=== PATIENT | male | born 1980 | race Caucasian/White ===

== ENCOUNTER 2024-06-15 11:43 | Observation (INO) | payer MEDICARE ==
[2024-06-15] MEDS ORDERED: DUONEB 0.5-3 MG/3 ml Neb IH ONE (12:06)
[2024-06-15] MEDS: DUONEB 0.5-3 MG/3 ml Neb IH ONE (12:15)
--- NOTE | 2024-06-15 12:22 | ERPHSYRPT ---
- History of Present Illness Time Seen by Provider: 06/15/24 12:11 Source: patient, family Exam Limitations: no limitations Patient Subjective Stated Complaint: pt c/o of low oxygen that was between 87-89 at Nica Artemas's office and upon arrival it was 92-93. pt also has a cough Triage Nursing Assessment: Pt brought to the ER by his sister, vitals wnl, denies pain, pulses normal, crackles and wheezing heard from across the room, mentally challenged, doesn't appear to be in any distress Physician History: 43 years old male with history of asthma, seizure disorder, hypertension, hyperlipidemia presented in the ER with almost 1 week history of cough congestion with worsening wheezing. Patient has been using albuterol with no significant relief. Patient was earlier at [facility] and oxygen saturation dropping to 87%. Patient reports increasing dyspnea with activity, subjective feeling of fever and chills, cough productive of clear to yellow sputum moderate in amount. Other family members had similar symptoms. Patient oxygen saturation is 91% on room air on presentation in the ER. Has diffuse wheezing and few rales. He is given DuoNeb, feeling better on reevaluation. Allergies/Adverse Reactions: No Known Drug Allergies Allergy (Unverified 06/15/24 16:44) Home Medications: Albuterol Sulfate 1 amp PO Q4-6HPRN 06/15/24 [History] Albuterol Sulfate [Albuterol Sulfate Hfa] 2 puff PO Q6HPRN PRN 06/15/24 [History] Ascorbic Acid 500 mg [Vitamin C 500 MG] 1,000 mg PO DAILY 06/15/24 [History] Fluticasone/Umeclidin/Vilanter [Trelegy Ellipta 200-62.5-25] 1 inh PO HS 06/15/24 [History] Lisinopril 10 mg [Zestril 10 MG] 10 mg PO BID 06/15/24 [History] Montelukast Sodium 10 mg [Singulair 10 MG] 10 mg PO DINNER 06/15/24 [History] Sertraline HCl 50 mg [Zoloft 50 mg Tablet] 50 mg PO DAILY 06/15/24 [History] Zonisamide 200 mg PO BID 06/15/24 [History] levETIRAcetam [Levetiracetam] 750 mg PO BID 06/15/24 [History] Hx Influenza Vaccination/Date Given: Yes Hx Pneumococcal Vaccination/Date Given: Yes Travel Risk - International Travel Have you traveled outside of the country in past 3 weeks: No - Emerging Infectious Disease Are you exhibiting symptoms associated with any current EIDs: Yes Symptoms: Cough: New Onset, Shortness of Breath - Review of Systems Constitutional: Fever, Chills, Fatigue Eyes: No Symptoms Ears, Nose, & Throat: Nose Congestion, Throat Swelling Respiratory: Cough, Dyspnea on Exertion (WARD), Wheezing Cardiac: No Symptoms Abdominal/Gastrointestinal: No Symptoms Genitourinary Symptoms: No Symptoms Musculoskeletal: Arthralgias Skin: No Symptoms Neurological: No Symptoms Endocrine: No Symptoms Hematologic/Lymphatic: No Symptoms - Past Medical History Pertinent Past Medical History: Yes Neurological History: Seizures Cardiac History: High Cholesterol, Hypertension Respiratory History: Asthma GI Medical History: Irritable Bowel Psycho-Social History: Depression - Past Surgical History Past Surgical History: Yes Musculoskeletal: Orthopedic Surgery Other Surgical History: thyroid surgery, sobeida ankle surgery to straighten feet - Social History Smoking Status: Never smoker Exposure to second hand smoke: Yes Drug Use: none - Social Determinants of Health Will the patient participate in the screening: Yes Do you worry about a steady place to live?: No Do you have any problems with any of the following?: No known problems In the past 12 months,have you had to go without utilities?: No Transportation Issues: No Has anyone in your support network made you feel unsafe?: No Have you or anyone in your house had to go without enough: No - Nursing Vital Signs Nursing Vital Signs: Initial Vital Signs Temperature 98.2 F 06/15/24 11:47 Pulse Rate 79 06/15/24 11:47 Respiratory Rate 31 H 06/15/24 11:47 Blood Pressure 135/81 06/15/24 11:47 O2 Sat by Pulse Oximetry 93 L 06/15/24 11:47 Pain Scale Pain Intensity 0 - Physical Exam General Appearance: no apparent distress, alert Eye Exam: PERRL/EOMI Ears, Nose, Throat Exam: hearing grossly normal, pharyngeal erythema Neck Exam: normal inspection, non-tender, supple, full range of motion Respiratory Exam: diminished breath sounds, accessory muscle use, wheezing Cardiovascular/Chest Exam: normal heart sounds, regular rate/rhythm Abdominal/Gastrointestinal Exam: soft, normal bowel sounds Extremity Exam: non-tender, normal range of motion Neurologic Exam: alert, oriented x 3, cooperative, 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 Skin Exam: normal color SpO2 Interpretation: normal SpO2: 93 O2 Delivery: Room Air Ordered Tests: Medication Summary Discontinued Medications Generic Name Dose Route Start Last Admin Trade Name Camdenq PRN Reason Stop Dose Admin Acetaminophen 650 mg 06/15/24 16:53 Acetaminophen 325 Mg Tablet PO 07/15/24 16:52 Q4H PRN PRN PAIN, FEVER, HEADACHE Albuterol Sulfate 2 puff 06/16/24 07:12 Albuterol Common Canister Inhaler IH 07/16/24 07:11 Q6HPRN PRN SHORTNESS OF BREATH Albuterol/Ipratropium Confirm 06/15/24 12:06 Ipratropium/Albuterol Sulfate 3 Ml Ampul.Neb Administered 06/15/24 12:07 Dose 3 ml IH .STK-MED ONE Albuterol/Ipratropium 3 ml 06/15/24 12:11 06/15/24 12:15 Ipratropium/Albuterol Sulfate 3 Ml Ampul.Neb 06/15/24 12:12 3 ml STAT ONE Administration Albuterol/Ipratropium 3 ml 06/15/24 19:00 06/16/24 13:20 Ipratropium/Albuterol Sulfate 3 Ml Ampul.Neb 07/15/24 18:59 3 ml Q6HRT DEANNA Administration Methylprednisolone Sodium 0 mg 06/15/24 12:14 06/15/24 13:34 Succinate 125 mg/ Sterile IV 06/15/24 12:15 125 mg Water 2 ml STAT ONE Administration Methylprednisolone Sodium 0 mg 06/15/24 22:00 06/16/24 09:58 Succinate 40 mg/ Sterile Water IV 07/15/24 21:59 40 mg 1 ml Q12HT DEANNA Administration Enoxaparin Sodium 40 mg 06/15/24 18:00 06/16/24 09:55 Enoxaparin Sodium 40 Mg/0.4 Ml Syringe SQ 07/15/24 17:59 40 mg DAILY DEANNA Administration Guaifenesin/Dextromethorphan 5 ml 06/15/24 16:53 06/15/24 23:13 Guaifenesin/D-Methorphan Hb 118 Ml Syrup PO 07/15/24 16:52 5 ml Q4H PRN PRN Administration COUGH Sodium Chloride 1,000 mls @ 999 mls/hr 06/15/24 14:06 06/15/24 15:58 Sodium Chloride 0.9% 1000 Ml IV 06/15/24 15:06 Infused .Q1H1M STA Infusion Sodium Chloride Confirm 06/15/24 14:11 Sodium Chloride 0.9% 1000 Ml Administered 06/15/24 14:12 Dose 1,000 mls @ ud .ROUTE .STK-MED ONE Ceftriaxone Sodium 2 gm in 100 mls @ 200 mls/hr 06/15/24 15:52 06/15/24 16:00 Rocephin 2 Gm/100 Ml Nacl IV 06/15/24 16:21 200 ml/hr STAT ONE 200 mls/hr Administration Azithromycin 500 mg in 250 mls @ 250 mls/hr 06/15/24 15:52 06/15/24 17:24 Zithromax 500 Mg/ 250 Ml Nacl Premix IV 06/15/24 16:51 Not Given STAT STA Ceftriaxone Sodium Confirm 06/15/24 15:55 Rocephin 2 Gm/100 Ml Nacl Administered 06/15/24 15:56 Dose 2 gm in 100 mls @ ud IV .STK-MED ONE Azithromycin 500 mg in 250 mls @ 250 mls/hr 06/16/24 10:00 06/16/24 10:50 Zithromax 500 Mg/ 250 Ml Nacl Premix IV 07/16/24 09:59 250 mls/hr Q24H10 DEANNA Administration Ceftriaxone Sodium 1 gm in 100 mls @ 200 mls/hr 06/16/24 10:00 06/16/24 09:55 Rocephin 1 Gm / 100 Ml Nacl IV 07/16/24 09:59 200 mls/hr Q24H10 DEANNA Administration Levetiracetam Confirm 06/15/24 22:43 Levetiracetam 500 Mg Tablet Administered 06/15/24 22:44 Dose 500 mg .ROUTE .STK-MED ONE Levetiracetam Confirm 06/15/24 22:43 Levetiracetam 250 Mg Tablet Administered 06/15/24 22:44 Dose 250 mg .ROUTE .STK-MED ONE Levetiracetam 250 mg 06/16/24 10:00 06/16/24 09:57 Levetiracetam 250 Mg Tablet PO 07/16/24 09:59 250 mg BID DEANNA Administration Levetiracetam 500 mg 06/16/24 10:00 06/16/24 09:57 Levetiracetam 500 Mg Tablet PO 07/16/24 09:59 500 mg BID DEANNA Administration Lisinopril 10 mg 06/16/24 10:00 06/16/24 09:57 Lisinopril 10 Mg Tablet PO 07/16/24 09:59 10 mg BID DEANNA Administration Methylprednisolone Sodium Succinate Confirm 06/15/24 13:29 Methylprednis Sod Succ 125 Mg/2 Ml Vial Administered 06/15/24 13:30 Dose 125 mg .ROUTE .STK-MED ONE Montelukast Sodium 10 mg 06/16/24 17:00 Montelukast Sodium 10 Mg Tablet PO 07/16/24 16:59 DINNER DEANNA Non-Formulary Medication 750 mg 06/16/24 10:00 06/15/24 23:04 Levetiracetam [Levetiracetam] PO 07/16/24 09:59 750 mg BID DEANNA Administration Non-Formulary Medication 200 mg 06/16/24 10:00 06/15/24 23:04 Zonisamide PO 07/16/24 09:59 200 mg BID DEANNA Administration Ondansetron HCl 4 mg 06/15/24 16:53 Ondansetron Hcl 4 Mg/2 Ml Vial IV 07/15/24 16:52 Q6H PRN PRN NAUSEA/VOMITING Pantoprazole Sodium 40 mg 06/15/24 17:00 06/16/24 09:58 Pantoprazole 40 Mg Vial IV 07/15/24 16:59 40 mg Q24H10 DEANNA Administration Patient Own Med 0 each 06/16/24 10:00 06/16/24 09:48 Misc (Trelegy) IH 07/16/24 09:59 1 each QAM DEANNA Administration Sertraline HCl 50 mg 06/16/24 10:00 06/16/24 09:57 Sertraline Hcl 50 Mg Tab PO 07/16/24 09:59 50 mg DAILY DEANNA Administration Sterile Water Confirm 06/15/24 13:30 Water For Injection,Sterile 10 Ml Vial Administered 06/15/24 13:31 Dose 10 ml IJ .K-[facility] ONE Zonisamide 200 mg 06/16/24 10:00 06/16/24 09:56 Zonisamide 100 Mg Capsule PO 07/16/24 09:59 200 mg BID DEANNA Administration Zonisamide 200 mg 06/15/24 23:00 Zonisamide 100 Mg Capsule .ROUTE 06/15/24 23:01 .K-MED ONE Lab/Rad Data: Laboratory Result Diagrams 06/15/24 12:25 06/15/24 12:25 Laboratory Results 06/15/24 06/15/24 06/15/24 Range/Units 15:25 13:11 12:25 WBC (4.23-9.07) x10^3/uL RBC (4.63-6.08) x10^6/uL Hgb (13.7-17.5) g/dL Hct (40.1-51.0) % MCV (79.0-92.2) fL MCH (25.7-32.2) pg MCHC (32.3-36.5) g/dL RDW (11.6-14.4) % Plt Count (163-337) x10^3/uL MPV (9.4-12.4) fL Sodium (135-145) mmol/L Potassium (3.5-5.1) mmol/L Chloride (98-107) mmol/L Carbon Dioxide (22-30) mmol/L Anion Gap (5-15) MEQ/L BUN (9-20) mg/dL Creatinine (0.66-1.25) mg/dL Estimated GFR ML/MIN Glucose (74-106) mg/dL Lactic Acid (0.4-2.0) Calcium (8.4-10.2) mg/dL Total Bilirubin (0.2-1.3) mg/dL AST (17-59) U/L ALT (0-50) U/L Alkaline Phosphatase (38-126) U/L Troponin I < 0.012 < 0.012 (0.000-0.033) ng/mL NT-Pro-B Natriuret Pep (<300) pg/mL Serum Total Protein (6.3-8.2) g/dL Albumin (3.5-5.0) g/dL Influenza Type A Ag NEGATIVE (NEGATIVE) Influenza Type B Ag NEGATIVE (NEGATIVE) RSV (PCR) NEGATIVE (NEGATIVE) SARS-CoV-2 (PCR) NEGATIVE (NEGATIVE) 06/15/24 06/15/24 06/15/24 Range/Units 12:25 12:25 12:09 WBC 10.5 H (4.23-9.07) x10^3/uL RBC 5.18 (4.63-6.08) x10^6/uL Hgb 15.2 (13.7-17.5) g/dL Hct 46.5 (40.1-51.0) % MCV 89.8 (79.0-92.2) fL MCH 29.3 (25.7-32.2) pg MCHC 32.7 (32.3-36.5) g/dL RDW 13.7 (11.6-14.4) % Plt Count 280 (163-337) x10^3/uL MPV 10.1 (9.4-12.4) fL Sodium 142 (135-145) mmol/L Potassium 4.2 (3.5-5.1) mmol/L Chloride 108 H (98-107) mmol/L Carbon Dioxide 20 L (22-30) mmol/L Anion Gap 18.3 H (5-15) MEQ/L BUN 12 (9-20) mg/dL Creatinine 1.10 (0.66-1.25) mg/dL Estimated GFR 86.0 ML/MIN Glucose 87 (74-106) mg/dL Lactic Acid 1.1 (0.4-2.0) Calcium 9.6 (8.4-10.2) mg/dL Total Bilirubin 0.50 (0.2-1.3) mg/dL AST 23 (17-59) U/L ALT 25 (0-50) U/L Alkaline Phosphatase 71 (38-126) U/L Troponin I (0.000-0.033) ng/mL NT-Pro-B Natriuret Pep < 20.0 (<300) pg/mL Serum Total Protein 8.1 (6.3-8.2) g/dL Albumin 5.0 (3.5-5.0) g/dL Influenza Type A Ag (NEGATIVE) Influenza Type B Ag (NEGATIVE) RSV (PCR) (NEGATIVE) SARS-CoV-2 (PCR) (NEGATIVE) - Progress Progress: improved, re-examined Air Movement: good Progress Note: 06/15/24 15:58 43-year-old with history of asthma is evaluated in the ER for worsening cough congestion symptoms with wheezing diffusely and getting hypoxic. He is given DuoNeb and Solu-Medrol, feeling better on reevaluation. While in the ER his oxygen saturation dropping to upper 80s, placed on 2 L oxygen. Hope workup showed normal white count, chemistries fairly unremarkable except for some element of dehydration and given fluids. Chest x-ray is negative for any acute cardiopulmonary findings reviewed by me followed by official read. I have tried to wean him off of oxygen but his saturation while resting or dropping to upper 80s. He is put back on 2 L. He I believe patient has acute asthma exacerbation with bronchitis and given a dose of antibiotic. I believe patient would benefit with IV steroid, neb treatments and observation admission. I have shared the results of workup with patient and family and plan of admission which they understand and agree. Discussed with Dr. Lombardo, reviewed history, workup and patient is excepted for admission. Blood Culture(s) Obtained: Yes Antibiotics given: Yes Discussed with Dr.: Other (Dr. Dillon hospitalist) Will see patient in: hospital (observation) Counseled pt/family regarding: lab results, diagnosis, rad results Medical Desision Making - Independent Historian Additional History obtained from: Relative/friend - Discussion of managment Care discussed with:: hospitalist Reviewed:: Test results Agreed on:: Treatment plan, place in obs Will see patient: in hospital - Diagnostic Testing Radiological Interpretation: Interpreted by me, Reviewed by me - Risk of complications The pt has a mod risk of morbidity or mortality based on: Need for prescription drug management The pt has a high risk of morbidity or mortality based on: Decision regarding hospitilization or escalation of hosp level of care - Departure Departure Disposition: Observation Clinical Impression: Acute bronchitis with asthma with acute exacerbation, Hypoxia Condition: Stable Critical Care Time: No
[2024-06-15 12:31] LABS: Hematocrit 46.5 % (40.1-51.0); Hemoglobin 15.2 g/dL (13.7-17.5); Mean Cell Volume 89.8 fL (79.0-92.2); Mean Corpuscular Hemoglobin 29.3 pg (25.7-32.2); Mean Corpuscular Hgb Concent. 32.7 g/dL (32.3-36.5); Mean Platelet Volume 10.1 fL (9.4-12.4); Platelet Count 280 x10^3/uL (163-337); Red Blood Count 5.18 x10^6/uL (4.63-6.08); Red Cell Distribution Width 13.7 % (11.6-14.4); White Blood Count 10.5 x10^3/uL (4.23-9.07)
--- NOTE | 2024-06-15 12:41 | XRAY ---
Indication: Cough. Comparison: May 25, 2023 Portable chest again demonstrates normal heart and lungs. Bony thorax intact with minimal degenerative changes. No new/acute findings.
[2024-06-15 13:21] LABS: ALKALINE PHOSPHATASE 71 U/L (38-126); ANION GAP 18.3 MEQ/L (5-15); BLOOD UREA NITROGEN 12 mg/dL (9-20); CHLORIDE 108 mmol/L (98-107); Calcium 9.6 mg/dL (8.4-10.2); Carbon Dioxide 20 mmol/L (22-30); Glucose 87 mg/dL (74-106); NT PRO BNPII < 20.0 pg/mL (<300); Potassium 4.2 mmol/L (3.5-5.1); SGOT/AST 23 U/L (17-59); SGPT/ALT 25 U/L (0-50); SODIUM 142 mmol/L (135-145); Total Protein 8.1 g/dL (6.3-8.2)
[2024-06-15] MEDS ORDERED: solu-MEDROL ONE (13:29)
[2024-06-15] MEDS ORDERED: Sterile H2O 10 ml IJ ONE (13:30)
[2024-06-15] MEDS: solu-MEDROL 125 MG, Sterile H2O 10 ml 2 ML IV ONE (13:34)
[2024-06-15 13:48] LABS: INFLUENZA A NEGATIVE (NEGATIVE); INFLUENZA B NEGATIVE (NEGATIVE); RESPIRATORY SYNCTIAL VIRUS NEGATIVE (NEGATIVE); SARS-CoV-2 Xpert Express NEGATIVE (NEGATIVE)
[2024-06-15] MEDS ORDERED: Sodium Chloride 0.9% 1000 ML 1,000 ML ONE (14:11)
[2024-06-15] MEDS: Sodium Chloride 0.9% 1000 ML 1,000 ML IV STA (14:13)
[2024-06-15] MEDS ORDERED: ROCEPHIN 2 GM/100 ML NACL 2 GM/100 ML IVPB IV ONE (15:55)
[2024-06-15] MEDS: ROCEPHIN 2 GM/100 ML NACL 2 GM/100 ML IVPB IV ONE (16:00)
--- NOTE | 2024-06-15 16:48 | PCM.HP ---
History of Present Illness - Chief Complaint Chief Complaint: hypoxia /bronchitis/asthma exacerbation Date: 06/15/24 History of Present Illness: Mr. Hernandez is a 43 year old male with a pmhx of asthma, seizure disorder, HTN, IBS, depression, and HLD who presented to ED under the advisement of his PCP Montserrat Amaya with complaints of a week history of progressive dyspnea and cough. Patient was noted with an spo2 of 87% when evaluated and sent to ED. Sister (POA) states that patient has been progressively short of breath at home with spo2 around 91%. Cough has been persistent with copious amounts of clear sputum. Denies fever, cp, abdominal pain, SALCIDO, dizziness, N/V/D. Upon arrival to ED patient was tachypneic and hypoxic. No acute findings on CXR. Lab findings remarkable for leukocytosis and Gap acidosis. Respiratory viral panel negative. Patient was given solumedrol, IVF bolus, Ceftriaxone and azithromycin in ED. - Review of Systems Constitutional: No Symptoms Eyes: No Symptoms Ears, Nose, & Throat: Nose Congestion Respiratory: Cough, Short Of Breath, Wheezing Cardiac: No Symptoms Abdominal/Gastrointestinal: No Symptoms Genitourinary Symptoms: No Symptoms Musculoskeletal: No Symptoms Skin: No Symptoms Neurological: No Symptoms Psychological: No Symptoms Endocrine: No Symptoms Hematologic/Lymphatic: No Symptoms Immunological/Allergic: No Symptoms Medications & Allergies Home Medications: Home Medication List Albuterol Sulfate 1 amp PO Q4-6HPRN 06/15/24 [History Confirmed 06/15/24] Albuterol Sulfate [Albuterol Sulfate Hfa] 2 puff PO Q6HPRN PRN 06/15/24 [History Confirmed 06/15/24] Fluticasone/Umeclidin/Vilanter [Trelegy Ellipta 200-62.5-25] 1 inh PO DAILY 06/15/24 [History Confirmed 06/15/24] Lisinopril 10 mg [Zestril 10 MG] 10 mg PO DAILY 06/15/24 [History Confirmed 06/15/24] Montelukast Sodium 10 mg [Singulair 10 MG] 10 mg PO DAILY 06/15/24 [History Confirmed 06/15/24] Sertraline HCl 50 mg [Zoloft 50 mg Tablet] 50 mg PO DAILY 06/15/24 [History Confirmed 06/15/24] Zonisamide 200 mg PO BID 06/15/24 [History Confirmed 06/15/24] levETIRAcetam [Levetiracetam] 750 mg PO DAILY 06/15/24 [History Confirmed 06/15/24] Allergies/Adverse Reactions: Allergies Allergy/AdvReac Type Severity Reaction Status Date / Time No Known Drug Allergies Allergy Unverified 06/15/24 16:44 - Past Medical History Past Medical History: Yes Neurological History: Seizures Cardiac History: High Cholesterol, Hypertension Respiratory History: Asthma GI Medical History: Irritable Bowel Pyscho-Social History: Depression - Past Surgical History Past Surgical History: Yes Musculskeletal Surgical Hx: Orthopedic Surgery Other Surgical History: thyroid surgery, sobeida ankle surgery to straighten feet Significant Family History: heart disease, diabetes, hypertension, other (asthma/ HLD) - Social History Smoking Status: Never smoker Exposure to second hand smoke: Yes Alcohol: None Drug Use: none - Social Determinants of Health Will the patient participate in the screening: Yes Do you worry about a steady place to live?: No Do you have any problems with any of the following?: No known problems In the past 12 months,have you had to go without utilities?: No Have you or anyone in your house had to go without enough: No Transportation Issues: No Has anyone in your support network made you feel unsafe?: No - Physical Exam Vital Signs: Vital Signs - 24 hr Temp Pulse Resp BP BP Pulse Ox 06/15/24 16:10 92 L 06/15/24 16:05 92 L 06/15/24 16:01 93 L 06/15/24 15:30 70 24 101/53 92 L 06/15/24 15:21 92 L 06/15/24 15:10 93 L 06/15/24 15:05 94 L 06/15/24 14:32 112/69 06/15/24 14:01 74 23 107/85 98 06/15/24 13:30 81 21 108/76 92 L 06/15/24 13:13 79 23 132/77 99 06/15/24 12:30 87 24 127/75 06/15/24 12:16 86 20 89 L 06/15/24 12:00 81 27 H 137/72 90 L 06/15/24 11:47 98.2 F 79 31 H 135/81 93 L General Appearance: no apparent distress Neurologic Exam: alert, oriented x 3, cooperative Eye Exam: PERRL/EOMI Ears, Nose, Throat Exam: normal ENT inspection Neck Exam: normal inspection Respiratory Exam: diminished breath sounds, wheezing Cardiovascular Exam: regular rate/rhythm, normal heart sounds Rectal Exam: deferred Back Exam: normal inspection Extremity Exam: normal inspection Results - Labs Lab/Micro Results: Lab Results-Last 24 Hours 06/15/24 06/15/24 06/15/24 Range/Units 12:09 12:25 12:25 WBC 10.5 H (4.23-9.07) x10^3/uL RBC 5.18 (4.63-6.08) x10^6/uL Hgb 15.2 (13.7-17.5) g/dL Hct 46.5 (40.1-51.0) % MCV 89.8 (79.0-92.2) fL MCH 29.3 (25.7-32.2) pg MCHC 32.7 (32.3-36.5) g/dL RDW 13.7 (11.6-14.4) % Plt Count 280 (163-337) x10^3/uL MPV 10.1 (9.4-12.4) fL Sodium 142 (135-145) mmol/L Potassium 4.2 (3.5-5.1) mmol/L Chloride 108 H (98-107) mmol/L Carbon Dioxide 20 L (22-30) mmol/L Anion Gap 18.3 H (5-15) MEQ/L BUN 12 (9-20) mg/dL Creatinine 1.10 (0.66-1.25) mg/dL Estimated GFR 86.0 ML/MIN Glucose 87 (74-106) mg/dL Lactic Acid 1.1 (0.4-2.0) Calcium 9.6 (8.4-10.2) mg/dL Total Bilirubin 0.50 (0.2-1.3) mg/dL AST 23 (17-59) U/L ALT 25 (0-50) U/L Alkaline Phosphatase 71 (38-126) U/L Troponin I (0.000-0.033) ng/mL NT-Pro-B Natriuret Pep < 20.0 (<300) pg/mL Serum Total Protein 8.1 (6.3-8.2) g/dL Albumin 5.0 (3.5-5.0) g/dL Influenza Type A Ag (NEGATIVE) Influenza Type B Ag (NEGATIVE) RSV (PCR) (NEGATIVE) SARS-CoV-2 (PCR) (NEGATIVE) 06/15/24 06/15/24 06/15/24 Range/Units 12:25 13:11 15:25 WBC (4.23-9.07) x10^3/uL RBC (4.63-6.08) x10^6/uL Hgb (13.7-17.5) g/dL Hct (40.1-51.0) % MCV (79.0-92.2) fL MCH (25.7-32.2) pg MCHC (32.3-36.5) g/dL RDW (11.6-14.4) % Plt Count (163-337) x10^3/uL MPV (9.4-12.4) fL Sodium (135-145) mmol/L Potassium (3.5-5.1) mmol/L Chloride (98-107) mmol/L Carbon Dioxide (22-30) mmol/L Anion Gap (5-15) MEQ/L BUN (9-20) mg/dL Creatinine (0.66-1.25) mg/dL Estimated GFR ML/MIN Glucose (74-106) mg/dL Lactic Acid (0.4-2.0) Calcium (8.4-10.2) mg/dL Total Bilirubin (0.2-1.3) mg/dL AST (17-59) U/L ALT (0-50) U/L Alkaline Phosphatase (38-126) U/L Troponin I < 0.012 < 0.012 (0.000-0.033) ng/mL NT-Pro-B Natriuret Pep (<300) pg/mL Serum Total Protein (6.3-8.2) g/dL Albumin (3.5-5.0) g/dL Influenza Type A Ag NEGATIVE (NEGATIVE) Influenza Type B Ag NEGATIVE (NEGATIVE) RSV (PCR) NEGATIVE (NEGATIVE) SARS-CoV-2 (PCR) NEGATIVE (NEGATIVE) - Radiology Impressions Radiology Exams & Impressions: Radiology Procedures Category Date Time Status CHEST 1 VIEW (PORTABLE) Stat Exams 06/15/24 12:09 Completed - Other Procedures and Tests Respiratory Therapy 06/15/24 16:37 Respiratory Therapy Consult ONCE Assessment/Plan (1) Acute respiratory failure with hypoxia Current Visit: Yes Status: Acute Assessment & Plan: -Most likely secondary to acute bronchitis -CXR with no acute findings -CBC reviewed with mild leukocytosis -trend -Ceftriaxone/azithromycin started in ED - will continue -solumedrol 40mg Q8H -Supplemental oxygen with goal spo2 > 92% -RT eval -DuoNebs/Home trelegy INH -Respiratory panel negative for COVID/FLU/RSV -consider pulm consult/CT chest if symptoms not improving Code(s): J96.01 - ACUTE RESPIRATORY FAILURE WITH HYPOXIA (2) Acute bronchitis with asthma with acute exacerbation Current Visit: Yes Status: Acute Assessment & Plan: -see ARF Code(s): J20.9 - ACUTE BRONCHITIS, UNSPECIFIED; J45.901 - UNSPECIFIED ASTHMA WITH (ACUTE) EXACERBATION (3) Leukocytosis Current Visit: Yes Status: Acute Assessment & Plan: -CBC reviewed at 10.5- may be reactive -trend -CXR with no acute findings -Ceftriaxone/azithromycin Code(s): D72.829 - ELEVATED WHITE BLOOD CELL COUNT, UNSPECIFIED (4) Seizure disorder Current Visit: Yes Status: Acute Assessment & Plan: -continue home Keppra/zonisamide -seizure precautions Code(s): G40.909 - EPILEPSY, UNSP, NOT INTRACTABLE, WITHOUT STATUS EPILEPTICUS (5) HTN (hypertension) Current Visit: Yes Status: Acute Assessment & Plan: -BP stable continue home lisinopril Code(s): I10 - ESSENTIAL (PRIMARY) HYPERTENSION (6) HLD (hyperlipidemia) Current Visit: Yes Status: Acute Assessment & Plan: -Continue home regimen- does not appear to take home meds Code(s): E78.5 - HYPERLIPIDEMIA, UNSPECIFIED (7) IBS (irritable bowel syndrome) Current Visit: Yes Status: Acute Assessment & Plan: -Noted - continue home regimen VTE: SCD PPI: protonix Dispo: 1-2 days pending treatment response Telemedicine Encounter - Telemedicine Encounter Telemedicine Encounter: "The entirety of this encounter was performed via Telemedicine" This visit was performed using real-time audio and video connection between my location and [facility] locationwith the assistance of a surrogateat the patients location. Written or verbal consent was obtained from the patient/guardian to perform this visit usingncnew [facility]le[facility]icine [facility]. Any patient questions regarding the telemedicine interaction were answered.
[2024-06-15] MEDS ORDERED: TYLENOL 325 MG PO PRN (16:53)
[2024-06-15] MEDS ORDERED: Zofran 4 MG/2 ML VIAL IV PRN (16:53)
[2024-06-15] MEDS: Zithromax 500 MG/ 250 ML NaCl Premix 500 MG/250 ML IVPB IV STA (17:24)
[2024-06-15] MEDS: DUONEB 0.5-3 MG/3 ml Neb IH SCH (17:50)
[2024-06-15] MEDS: ENOXAPARIN SODIUM SQ SCH (18:05)
[2024-06-15] MEDS: PROTONIX 40 MG IV IV SCH (18:05)
[2024-06-15 19:59] LABS: Appearance Clear (Clear); Bacteria None Seen /HPF (None Seen); Bilirubin Negative (Negative); Blood Negative (Negative); Epithelial Cells None Seen /HPF (None Seen); Glucose, Urine Negative (Negative); Hyaline Casts NONE SEEN /LPF (0-2); Ketones Negative (Negative); Leukocyte Esterase Negative (Negative); Nitrite Negative (Negative); Protein,Urine Dip Negative (Negative); RBC 0-2 /HPF (0-5); Specific Gravity 1.015 (1.005-1.030); WBC 0-2 /HPF (0-5)
[2024-06-15] MEDS ORDERED: KEPPRA ONE (22:43)
[2024-06-15] MEDS ORDERED: Keppra 250 MG ONE (22:43)
[2024-06-15] MEDS ORDERED: ZONISAMIDE ONE (23:00)
[2024-06-15] MEDS: Zestril 10 MG PO SCH (23:03)
[2024-06-15] MEDS: LEVETIRACETAM 750 MG PO SCH (23:04)
[2024-06-15] MEDS: ZONISAMIDE 100 MG PO SCH (23:04)
[2024-06-15] MEDS: Robitussin-Dm Syrup PO PRN (23:13)
[2024-06-15] MEDS: solu-MEDROL 40 MG, Sterile H2O 10 ml 1 ML IV SCH (23:13)
--- NOTE | 2024-06-16 05:11 | PCM.NOTE ---
Date and Time: 06/16/24 0510 Subjective Assessment: Mr. Hernandez is a 43 year old male with a pmhx of asthma, seizure disorder, HTN, IBS, depression, and HLD who presented to ED under the advisement of his PCP Montserrat Amaya with complaints of a week history of progressive dyspnea and cough. Patient was noted with an spo2 of 87% when evaluated and sent to ED. Sister (POA) states that patient has been progressively short of breath at home with spo2 around 91%. Cough has been persistent with copious amounts of clear sputum. Denies fever, cp, abdominal pain, SALCIDO, dizziness, N/V/D. Upon arrival to ED patient was tachypneic and hypoxic. No acute findings on CXR. Lab findings remarkable for leukocytosis and Gap acidosis. Respiratory viral panel negative. Patient was given solumedrol, IVF bolus, Ceftriaxone and azithromycin in ED. Objective Data Vital Signs: Vital Signs - 24 hr Temp Pulse Resp BP BP Pulse Ox 06/16/24 03:38 97.8 F 76 19 114/56 94 L 06/16/24 01:25 89 18 93 L 06/15/24 23:41 97.8 F 76 17 104/57 94 L 06/15/24 19:52 96.7 F 94 H 18 127/64 93 L 06/15/24 17:27 118 H 18 98 06/15/24 17:21 91 L 06/15/24 16:54 97.4 F 109 H 24 133/69 91 L 06/15/24 16:10 92 L 06/15/24 16:05 92 L 06/15/24 16:01 93 L 06/15/24 15:30 70 24 101/53 92 L 06/15/24 15:21 92 L 06/15/24 15:10 93 L 06/15/24 15:05 94 L 06/15/24 14:32 112/69 06/15/24 14:01 74 23 107/85 98 06/15/24 13:30 81 21 108/76 92 L 06/15/24 13:13 79 23 132/77 99 06/15/24 12:30 87 24 127/75 06/15/24 12:16 86 20 89 L 06/15/24 12:00 81 27 H 137/72 90 L 06/15/24 11:47 98.2 F 79 31 H 135/81 93 L Pain Assessment - Last Documented Pain Intensity 0 Intake and Output: Intake & Output 06/13/24 06/14/24 06/15/24 06/16/24 11:59 11:59 11:59 11:59 Intake Total 360 Output Total 125 Balance 235 Weight 119.6 kg 114.9 kg Lab Results: Lab Results-Last 24 Hours 06/15/24 06/15/24 06/15/24 Range/Units 12:09 12:25 12:25 WBC 10.5 H (4.23-9.07) x10^3/uL RBC 5.18 (4.63-6.08) x10^6/uL Hgb 15.2 (13.7-17.5) g/dL Hct 46.5 (40.1-51.0) % MCV 89.8 (79.0-92.2) fL MCH 29.3 (25.7-32.2) pg MCHC 32.7 (32.3-36.5) g/dL RDW 13.7 (11.6-14.4) % Plt Count 280 (163-337) x10^3/uL MPV 10.1 (9.4-12.4) fL Sodium 142 (135-145) mmol/L Potassium 4.2 (3.5-5.1) mmol/L Chloride 108 H (98-107) mmol/L Carbon Dioxide 20 L (22-30) mmol/L Anion Gap 18.3 H (5-15) MEQ/L BUN 12 (9-20) mg/dL Creatinine 1.10 (0.66-1.25) mg/dL Estimated GFR 86.0 ML/MIN Glucose 87 (74-106) mg/dL Lactic Acid 1.1 (0.4-2.0) Calcium 9.6 (8.4-10.2) mg/dL Total Bilirubin 0.50 (0.2-1.3) mg/dL AST 23 (17-59) U/L ALT 25 (0-50) U/L Alkaline Phosphatase 71 (38-126) U/L Troponin I (0.000-0.033) ng/mL NT-Pro-B Natriuret Pep < 20.0 (<300) pg/mL Serum Total Protein 8.1 (6.3-8.2) g/dL Albumin 5.0 (3.5-5.0) g/dL Urine Color (Yellow) Urine Appearance (Clear) Urine pH (4.6-8.0) Ur Specific [place] (1.005-1.030) Urine Protein (Negative) Urine Glucose (UA) (Negative) mg/dL Urine Ketones (Negative) Urine Blood (Negative) Urine Nitrite (Negative) Urine Bilirubin (Negative) Urine Urobilinogen (0.2) mg/dL Ur Leukocyte Esterase (Negative) U Hyaline Cast (Auto) (0-2) /LPF Urine Microscopic RBC (0-5) /HPF Urine Microscopic WBC (0-5) /HPF Ur Epithelial Cells (None Seen) /HPF Urine Bacteria (None Seen) /HPF Urine Culture Reflexed (NO) Influenza Type A Ag (NEGATIVE) Influenza Type B Ag (NEGATIVE) RSV (PCR) (NEGATIVE) SARS-CoV-2 (PCR) (NEGATIVE) 06/15/24 06/15/24 06/15/24 Range/Units 12:25 13:11 15:25 WBC (4.23-9.07) x10^3/uL RBC (4.63-6.08) x10^6/uL Hgb (13.7-17.5) g/dL Hct (40.1-51.0) % MCV (79.0-92.2) fL MCH (25.7-32.2) pg MCHC (32.3-36.5) g/dL RDW (11.6-14.4) % Plt Count (163-337) x10^3/uL MPV (9.4-12.4) fL Sodium (135-145) mmol/L Potassium (3.5-5.1) mmol/L Chloride (98-107) mmol/L Carbon Dioxide (22-30) mmol/L Anion Gap (5-15) MEQ/L BUN (9-20) mg/dL Creatinine (0.66-1.25) mg/dL Estimated GFR ML/MIN Glucose (74-106) mg/dL Lactic Acid (0.4-2.0) Calcium (8.4-10.2) mg/dL Total Bilirubin (0.2-1.3) mg/dL AST (17-59) U/L ALT (0-50) U/L Alkaline Phosphatase (38-126) U/L Troponin I < 0.012 < 0.012 (0.000-0.033) ng/mL NT-Pro-B Natriuret Pep (<300) pg/mL Serum Total Protein (6.3-8.2) g/dL Albumin (3.5-5.0) g/dL Urine Color (Yellow) Urine Appearance (Clear) Urine pH (4.6-8.0) Ur Specific [place] (1.005-1.030) Urine Protein (Negative) Urine Glucose (UA) (Negative) mg/dL Urine Ketones (Negative) Urine Blood (Negative) Urine Nitrite (Negative) Urine Bilirubin (Negative) Urine Urobilinogen (0.2) mg/dL Ur Leukocyte Esterase (Negative) U Hyaline Cast (Auto) (0-2) /LPF Urine Microscopic RBC (0-5) /HPF Urine Microscopic WBC (0-5) /HPF Ur Epithelial Cells (None Seen) /HPF Urine Bacteria (None Seen) /HPF Urine Culture Reflexed (NO) Influenza Type A Ag NEGATIVE (NEGATIVE) Influenza Type B Ag NEGATIVE (NEGATIVE) RSV (PCR) NEGATIVE (NEGATIVE) SARS-CoV-2 (PCR) NEGATIVE (NEGATIVE) 06/15/24 06/15/24 Range/Units 18:45 19:50 WBC (4.23-9.07) x10^3/uL RBC (4.63-6.08) x10^6/uL Hgb (13.7-17.5) g/dL Hct (40.1-51.0) % MCV (79.0-92.2) fL MCH (25.7-32.2) pg MCHC (32.3-36.5) g/dL RDW (11.6-14.4) % Plt Count (163-337) x10^3/uL MPV (9.4-12.4) fL Sodium (135-145) mmol/L Potassium (3.5-5.1) mmol/L Chloride (98-107) mmol/L Carbon Dioxide (22-30) mmol/L Anion Gap (5-15) MEQ/L BUN (9-20) mg/dL Creatinine (0.66-1.25) mg/dL Estimated GFR ML/MIN Glucose (74-106) mg/dL Lactic Acid (0.4-2.0) Calcium (8.4-10.2) mg/dL Total Bilirubin (0.2-1.3) mg/dL AST (17-59) U/L ALT (0-50) U/L Alkaline Phosphatase (38-126) U/L Troponin I < 0.012 (0.000-0.033) ng/mL NT-Pro-B Natriuret Pep (<300) pg/mL Serum Total Protein (6.3-8.2) g/dL Albumin (3.5-5.0) g/dL Urine Color Yellow (Yellow) Urine Appearance Clear (Clear) Urine pH 7.0 (4.6-8.0) Ur Specific [place] 1.015 (1.005-1.030) Urine Protein Negative (Negative) Urine Glucose (UA) Negative (Negative) mg/dL Urine Ketones Negative (Negative) Urine Blood Negative (Negative) Urine Nitrite Negative (Negative) Urine Bilirubin Negative (Negative) Urine Urobilinogen 1.0 A (0.2) mg/dL Ur Leukocyte Esterase Negative (Negative) U Hyaline Cast (Auto) NONE SEEN (0-2) /LPF Urine Microscopic RBC 0-2 (0-5) /HPF Urine Microscopic WBC 0-2 (0-5) /HPF Ur Epithelial Cells None Seen (None Seen) /HPF Urine Bacteria None Seen (None Seen) /HPF Urine Culture Reflexed NO (NO) Influenza Type A Ag (NEGATIVE) Influenza Type B Ag (NEGATIVE) RSV (PCR) (NEGATIVE) SARS-CoV-2 (PCR) (NEGATIVE) Radiology Exams: Radiology Procedures Category Date Time Status CHEST 1 VIEW (PORTABLE) Stat Exams 06/15/24 12:09 Completed Assessment/Plan (1) Acute respiratory failure with hypoxia Current Visit: Yes Status: Acute Assessment & Plan: -Most likely secondary to acute bronchitis -CXR with no acute findings -CBC reviewed with mild leukocytosis -trend -Ceftriaxone/azithromycin started in ED - will continue -solumedrol 40mg Q8H -Supplemental oxygen with goal spo2 > 92% -RT eval -DuoNebs/Home trelegy INH -Respiratory panel negative for COVID/FLU/RSV -consider pulm consult/CT chest if symptoms not improving Code(s): J96.01 - ACUTE RESPIRATORY FAILURE WITH HYPOXIA 06/16: -WBC reviewed at 12.4 most likely secondary to steroid -Patient on 2L oxygen- titrate as tolerated -continue solu-medrol- titrate -Nebs/ceftriaxone/azithromycin (2) Acute bronchitis with asthma with acute exacerbation Current Visit: Yes Status: Acute Assessment & Plan: -see ARF Code(s): J20.9 - ACUTE BRONCHITIS, UNSPECIFIED; J45.901 - UNSPECIFIED ASTHMA WITH (ACUTE) EXACERBATION (3) Leukocytosis Current Visit: Yes Status: Acute Assessment & Plan: -CBC reviewed at 10.5- may be reactive -trend -CXR with no acute findings -Ceftriaxone/azithromycin Code(s): D72.829 - ELEVATED WHITE BLOOD CELL COUNT, UNSPECIFIED (4) Seizure disorder Current Visit: Yes Status: Acute Assessment & Plan: -continue home Keppra/zonisamide -seizure precautions Code(s): G40.909 - EPILEPSY, UNSP, NOT INTRACTABLE, WITHOUT STATUS EPILEPTICUS (5) HTN (hypertension) Current Visit: Yes Status: Acute Assessment & Plan: -BP stable continue home lisinopril Code(s): I10 - ESSENTIAL (PRIMARY) HYPERTENSION (6) HLD (hyperlipidemia) Current Visit: Yes Status: Acute Assessment & Plan: -Continue home regimen- does not appear to take home meds Code(s): E78.5 - HYPERLIPIDEMIA, UNSPECIFIED (7) IBS (irritable bowel syndrome) Current Visit: Yes Status: Acute Assessment & Plan: -Noted - continue home regimen VTE: SCD PPI: protonix Dispo: 1-2 days pending treatment response Code(s): J96.01 - ACUTE RESPIRATORY FAILURE WITH HYPOXIA (2) Acute bronchitis with asthma with acute exacerbation Current Visit: Yes Status: Acute Code(s): J20.9 - ACUTE BRONCHITIS, UNSPECIFIED; J45.901 - UNSPECIFIED ASTHMA WITH (ACUTE) EXACERBATION (3) Leukocytosis Current Visit: Yes Status: Acute Code(s): D72.829 - ELEVATED WHITE BLOOD CELL COUNT, UNSPECIFIED (4) Seizure disorder Current Visit: Yes Status: Acute Code(s): G40.909 - EPILEPSY, UNSP, NOT INTRACTABLE, WITHOUT STATUS EPILEPTICUS (5) HTN (hypertension) Current Visit: Yes Status: Acute Code(s): I10 - ESSENTIAL (PRIMARY) HYPERTENSION (6) HLD (hyperlipidemia) Current Visit: Yes Status: Acute Code(s): E78.5 - HYPERLIPIDEMIA, UNSPECIFIED (7) IBS (irritable bowel syndrome) Current Visit: Yes Status: Acute
[2024-06-16 05:18] LABS: Absolute Neutrophil Ct (ANC) 10.84 x10^3/uL (1.78-5.38); BASOPHIL % 0.4 % (0.2-1.2); Basophil (Absolute #) 0.05 x10^3/uL (0.01-0.08); Eosinophil % 0.1 % (0.8-7.0); Eosinophil (Absolute #) 0.01 x10^3/uL (0.04-0.54); Hemoglobin 13.7 g/dL (13.7-17.5); IMMATURE GRAN # 0.14 x10^3u/L (0.001-0.031); IMMATURE GRAN % 1.1 % (0.001-0.429); Lymphocyte (Absolute #) 0.98 x10^3/uL (1.32-3.57); Lymphocytes % 7.9 % (21.8-53.1); Mean Cell Volume 90.5 fL (79.0-92.2); Mean Corpuscular Hemoglobin 29.5 pg (25.7-32.2); Mean Corpuscular Hgb Concent. 32.6 g/dL (32.3-36.5); Mean Platelet Volume 10.5 fL (9.4-12.4); Monocyte (Absolute #) 0.33 x10^3/uL (0.30-0.82); Monocytes % 2.7 % (5.3-12.2); Neutrophil % 87.8 % (34.0-67.9); Platelet Count 255 x10^3/uL (163-337); Red Blood Count 4.64 x10^6/uL (4.63-6.08); Red Cell Distribution Width 14.1 % (11.6-14.4); White Blood Count 12.4 x10^3/uL (4.23-9.07)
[2024-06-16 05:54] LABS: ALBUMIN 4.3 g/dL (3.5-5.0); ANION GAP 15.4 MEQ/L (5-15); BILIRUBIN,TOTAL 0.4 mg/dL (0.2-1.3); Calcium 8.9 mg/dL (8.4-10.2); Creatinine 1 0.9 mg/dL (0.66-1.25); EST GLOMERULAR FILTRATION RATE 109.4 ML/MIN; Potassium 3.7 mmol/L (3.5-5.1); Total Protein 7.2 g/dL (6.3-8.2)
[2024-06-16] MEDS ORDERED: VENTOLIN COMMON CANISTER IH PRN (07:12)
[2024-06-16] MEDS: PATIENT OWN MEDICATION IH SCH (09:48)
[2024-06-16] MEDS: ROCEPHIN 1 GM / 100 ML NaCl 1 GM/100 ML IVPB IV SCH (09:55)
[2024-06-16] MEDS: ZONISAMIDE PO SCH (09:56)
[2024-06-16] MEDS: KEPPRA PO SCH (09:57)
[2024-06-16] MEDS: Keppra 250 MG PO SCH (09:57)
[2024-06-16] MEDS: ZOLOFT 50 MG TABLET PO SCH (09:57)
[2024-06-16] MEDS: Zithromax 500 MG/ 250 ML NaCl Premix 500 MG/250 ML IVPB IV SCH (10:50)
[2024-06-16 11:44] VITALS: BP 122/63; RESP 16; TEMP 98.2
--- NOTE | 2024-06-16 12:55 | PCM.DS ---
Discharge Summary Date of Admission: 06/15/24 16:27 Date of Discharge: 06/16/24 Admitting Physician: ORIN RICO MD Primary Care Provider: HARIKA AMAYA Allergies Allergies No Known Drug Allergies Allergy (Unverified 06/15/24 16:44) Hospital Summary - Hospital Course Hospital Course: Mr. Hernandez is a 43 year old male with a pmhx of asthma, seizure disorder, HTN, IBS, depression, and HLD who presented to ED under the advisement of his PCP Harika Amaya with complaints of a week history of progressive dyspnea and cough. Patient was noted with an spo2 of 87% when evaluated and sent to ED. Sister (POA) states that patient has been progressively short of breath at home with spo2 around 91%. Cough has been persistent with copious amounts of clear sputum. Denies fever, cp, abdominal pain, SALCIDO, dizziness, N/V/D. Upon arrival to ED patient was tachypneic and hypoxic. No acute findings on CXR. Lab findings remarkable for leukocytosis and Gap acidosis. Respiratory viral panel negative. Patient was given solumedrol, IVF bolus, Ceftriaxone and azithromycin in ED. No overnight events. Dyspnea and cough improved. Patient now on RA and requesting d ischarge. Will send home on cefuroxime and prednisone with DuoNebs for nebulizer machine. Patient agreeable and stable for discharge. Discharge Note Latest Assessment & Plan (1) Acute respiratory failure with hypoxia Current Visit: Yes Status: Acute Assessment & Plan: -Most likely secondary to acute bronchitis -CXR with no acute findings -CBC reviewed with mild leukocytosis -trend -Ceftriaxone/azithromycin started in ED - will continue -solumedrol 40mg Q8H -Supplemental oxygen with goal spo2 > 92% -RT eval -DuoNebs/Home trelegy INH -Respiratory panel negative for COVID/FLU/RSV -consider pulm consult/CT chest if symptoms not improving Code(s): J96.01 - ACUTE RESPIRATORY FAILURE WITH HYPOXIA 06/16: -WBC reviewed at 12.4 most likely secondary to steroid -Patient on 2L oxygen- titrate as tolerated -continue solu-medrol- titrate -Nebs/ceftriaxone/azithromycin (2) Acute bronchitis with asthma with acute exacerbation Current Visit: Yes Status: Acute Assessment & Plan: -see ARF Code(s): J20.9 - ACUTE BRONCHITIS, UNSPECIFIED; J45.901 - UNSPECIFIED ASTHMA WITH (ACUTE) EXACERBATION (3) Leukocytosis Current Visit: Yes Status: Acute Assessment & Plan: -CBC reviewed at 10.5- may be reactive -trend -CXR with no acute findings -Ceftriaxone/azithromycin Code(s): D72.829 - ELEVATED WHITE BLOOD CELL COUNT, UNSPECIFIED (4) Seizure disorder Current Visit: Yes Status: Acute Assessment & Plan: -continue home Keppra/zonisamide -seizure precautions Code(s): G40.909 - EPILEPSY, UNSP, NOT INTRACTABLE, WITHOUT STATUS EPILEPTICUS (5) HTN (hypertension) Current Visit: Yes Status: Acute Assessment & Plan: -BP stable continue home lisinopril Code(s): I10 - ESSENTIAL (PRIMARY) HYPERTENSION (6) HLD (hyperlipidemia) Current Visit: Yes Status: Acute Assessment & Plan: -Continue home regimen- does not appear to take home meds Code(s): E78.5 - HYPERLIPIDEMIA, UNSPECIFIED (7) IBS (irritable bowel syndrome) Current Visit: Yes Status: Acute Assessment & Plan: -Noted - continue home regimen I spent 35 minutes [id number] with the patient on the day of discharge performing discharge exam, discussing hospital stay and discharge instructions with patient and caregivers, preparation of discharge records, prescriptions & referral forms and addressing any questions/concerns the patient had as documented above. - Vitals & Intake/Output Vital Signs: Vital Signs Temperature 98.2 F 06/16/24 11:43 Pulse Rate 84 06/16/24 11:43 Respiratory Rate 16 06/16/24 11:43 Blood Pressure 122/63 06/16/24 11:43 O2 Sat by Pulse Oximetry 95 06/16/24 11:43 Intake & Output: Intake & Output 06/14/24 06/15/24 06/16/24 06/17/24 11:59 11:59 11:59 11:59 Intake Total 940 Output Total 125 Balance 815 Weight 119.6 kg 113.8 kg - Lab Result Diagrams: 06/16/24 05:12 06/16/24 05:12 Lab Results-Last 24 Hrs: Lab Results-Last 24 Hours 06/15/24 06/15/24 06/15/24 Range/Units 12:25 12:25 13:11 WBC (4.23-9.07) x10^3/uL RBC (4.63-6.08) x10^6/uL Hgb (13.7-17.5) g/dL Hct (40.1-51.0) % MCV (79.0-92.2) fL MCH (25.7-32.2) pg MCHC (32.3-36.5) g/dL RDW (11.6-14.4) % Plt Count (163-337) x10^3/uL MPV (9.4-12.4) fL Gran % (34.0-67.9) % Immature Gran % (Auto) (0.001-0.429) % Nucleat RBC Rel Count (0.00-0.2) % Eos # (Auto) (0.04-0.54) x10^3/uL Immature Gran # (Auto) (0.001-0.031) x10^3u/L Absolute Lymphs (auto) (1.32-3.57) x10^3/uL Absolute Monos (auto) (0.30-0.82) x10^3/uL Absolute Nucleated RBC (0.00-0.012) x10^3u/L Lymphocytes % (21.8-53.1) % Monocytes % (5.3-12.2) % Eosinophils % (0.8-7.0) % Basophils % (0.2-1.2) % Absolute Granulocytes (1.78-5.38) x10^3/uL Basophils # (0.01-0.08) x10^3/uL Sodium 142 (135-145) mmol/L Potassium 4.2 (3.5-5.1) mmol/L Chloride 108 H (98-107) mmol/L Carbon Dioxide 20 L (22-30) mmol/L Anion Gap 18.3 H (5-15) MEQ/L BUN 12 (9-20) mg/dL Creatinine 1.10 (0.66-1.25) mg/dL Estimated GFR 86.0 ML/MIN Glucose 87 (74-106) mg/dL Calcium 9.6 (8.4-10.2) mg/dL Total Bilirubin 0.50 (0.2-1.3) mg/dL AST 23 (17-59) U/L ALT 25 (0-50) U/L Alkaline Phosphatase 71 (38-126) U/L Troponin I < 0.012 (0.000-0.033) ng/mL NT-Pro-B Natriuret Pep < 20.0 (<300) pg/mL Serum Total Protein 8.1 (6.3-8.2) g/dL Albumin 5.0 (3.5-5.0) g/dL Urine Color (Yellow) Urine Appearance (Clear) Urine pH (4.6-8.0) Ur Specific [place] (1.005-1.030) Urine Protein (Negative) Urine Glucose (UA) (Negative) mg/dL Urine Ketones (Negative) Urine Blood (Negative) Urine Nitrite (Negative) Urine Bilirubin (Negative) Urine Urobilinogen (0.2) mg/dL Ur Leukocyte Esterase (Negative) U Hyaline Cast (Auto) (0-2) /LPF Urine Microscopic RBC (0-5) /HPF Urine Microscopic WBC (0-5) /HPF Ur Epithelial Cells (None Seen) /HPF Urine Bacteria (None Seen) /HPF Urine Culture Reflexed (NO) Influenza Type A Ag NEGATIVE (NEGATIVE) Influenza Type B Ag NEGATIVE (NEGATIVE) RSV (PCR) NEGATIVE (NEGATIVE) SARS-CoV-2 (PCR) NEGATIVE (NEGATIVE) 06/15/24 06/15/24 06/15/24 Range/Units 15:25 18:45 19:50 WBC (4.23-9.07) x10^3/uL RBC (4.63-6.08) x10^6/uL Hgb (13.7-17.5) g/dL Hct (40.1-51.0) % MCV (79.0-92.2) fL MCH (25.7-32.2) pg MCHC (32.3-36.5) g/dL RDW (11.6-14.4) % Plt Count (163-337) x10^3/uL MPV (9.4-12.4) fL Gran % (34.0-67.9) % Immature Gran % (Auto) (0.001-0.429) % Nucleat RBC Rel Count (0.00-0.2) % Eos # (Auto) (0.04-0.54) x10^3/uL Immature Gran # (Auto) (0.001-0.031) x10^3u/L Absolute Lymphs (auto) (1.32-3.57) x10^3/uL Absolute Monos (auto) (0.30-0.82) x10^3/uL Absolute Nucleated RBC (0.00-0.012) x10^3u/L Lymphocytes % (21.8-53.1) % Monocytes % (5.3-12.2) % Eosinophils % (0.8-7.0) % Basophils % (0.2-1.2) % Absolute Granulocytes (1.78-5.38) x10^3/uL Basophils # (0.01-0.08) x10^3/uL Sodium (135-145) mmol/L Potassium (3.5-5.1) mmol/L Chloride (98-107) mmol/L Carbon Dioxide (22-30) mmol/L Anion Gap (5-15) MEQ/L BUN (9-20) mg/dL Creatinine (0.66-1.25) mg/dL Estimated GFR ML/MIN Glucose (74-106) mg/dL Calcium (8.4-10.2) mg/dL Total Bilirubin (0.2-1.3) mg/dL AST (17-59) U/L ALT (0-50) U/L Alkaline Phosphatase (38-126) U/L Troponin I < 0.012 < 0.012 (0.000-0.033) ng/mL NT-Pro-B Natriuret Pep (<300) pg/mL Serum Total Protein (6.3-8.2) g/dL Albumin (3.5-5.0) g/dL Urine Color Yellow (Yellow) Urine Appearance Clear (Clear) Urine pH 7.0 (4.6-8.0) Ur Specific [place] 1.015 (1.005-1.030) Urine Protein Negative (Negative) Urine Glucose (UA) Negative (Negative) mg/dL Urine Ketones Negative (Negative) Urine Blood Negative (Negative) Urine Nitrite Negative (Negative) Urine Bilirubin Negative (Negative) Urine Urobilinogen 1.0 A (0.2) mg/dL Ur Leukocyte Esterase Negative (Negative) U Hyaline Cast (Auto) NONE SEEN (0-2) /LPF Urine Microscopic RBC 0-2 (0-5) /HPF Urine Microscopic WBC 0-2 (0-5) /HPF Ur Epithelial Cells None Seen (None Seen) /HPF Urine Bacteria None Seen (None Seen) /HPF Urine Culture Reflexed NO (NO) Influenza Type A Ag (NEGATIVE) Influenza Type B Ag (NEGATIVE) RSV (PCR) (NEGATIVE) SARS-CoV-2 (PCR) (NEGATIVE) 06/16/24 06/16/24 Range/Units 05:12 05:12 WBC 12.4 H (4.23-9.07) x10^3/uL RBC 4.64 (4.63-6.08) x10^6/uL Hgb 13.7 (13.7-17.5) g/dL Hct 42.0 (40.1-51.0) % MCV 90.5 (79.0-92.2) fL MCH 29.5 (25.7-32.2) pg MCHC 32.6 (32.3-36.5) g/dL RDW 14.1 (11.6-14.4) % Plt Count 255 (163-337) x10^3/uL MPV 10.5 (9.4-12.4) fL Gran % 87.8 H (34.0-67.9) % Immature Gran % (Auto) 1.1 H (0.001-0.429) % Nucleat RBC Rel Count 0.0 (0.00-0.2) % Eos # (Auto) 0.01 L (0.04-0.54) x10^3/uL Immature Gran # (Auto) 0.14 H (0.001-0.031) x10^3u/L Absolute Lymphs (auto) 0.98 L (1.32-3.57) x10^3/uL Absolute Monos (auto) 0.33 (0.30-0.82) x10^3/uL Absolute Nucleated RBC 0.00 (0.00-0.012) x10^3u/L Lymphocytes % 7.9 L (21.8-53.1) % Monocytes % 2.7 L (5.3-12.2) % Eosinophils % 0.1 L (0.8-7.0) % Basophils % 0.4 (0.2-1.2) % Absolute Granulocytes 10.84 H (1.78-5.38) x10^3/uL Basophils # 0.05 (0.01-0.08) x10^3/uL Sodium 142 (135-145) mmol/L Potassium 3.7 (3.5-5.1) mmol/L Chloride 111 H (98-107) mmol/L Carbon Dioxide 19 L (22-30) mmol/L Anion Gap 15.4 H (5-15) MEQ/L BUN 12 (9-20) mg/dL Creatinine 0.90 (0.66-1.25) mg/dL Estimated GFR 109.4 ML/MIN Glucose 135 H (74-106) mg/dL Calcium 8.9 (8.4-10.2) mg/dL Total Bilirubin 0.40 (0.2-1.3) mg/dL AST 24 (17-59) U/L ALT 26 (0-50) U/L Alkaline Phosphatase 52 (38-126) U/L Troponin I (0.000-0.033) ng/mL NT-Pro-B Natriuret Pep (<300) pg/mL Serum Total Protein 7.2 (6.3-8.2) g/dL Albumin 4.3 (3.5-5.0) g/dL Urine Color (Yellow) Urine Appearance (Clear) Urine pH (4.6-8.0) Ur Specific [place] (1.005-1.030) Urine Protein (Negative) Urine Glucose (UA) (Negative) mg/dL Urine Ketones (Negative) Urine Blood (Negative) Urine Nitrite (Negative) Urine Bilirubin (Negative) Urine Urobilinogen (0.2) mg/dL Ur Leukocyte Esterase (Negative) U Hyaline Cast (Auto) (0-2) /LPF Urine Microscopic RBC (0-5) /HPF Urine Microscopic WBC (0-5) /HPF Ur Epithelial Cells (None Seen) /HPF Urine Bacteria (None Seen) /HPF Urine Culture Reflexed (NO) Influenza Type A Ag (NEGATIVE) Influenza Type B Ag (NEGATIVE) RSV (PCR) (NEGATIVE) SARS-CoV-2 (PCR) (NEGATIVE) - Radiology Exams Ordered Rad Exams-Entire Visit: Radiology Procedures Category Date Time Status CHEST 1 VIEW (PORTABLE) Stat Exams 06/15/24 12:09 Completed - Procedures and Test Procedures and Tests throughout Hospitalization: Therapy Orders & Screens 06/15/24 12:07 Respiratory Nebulizer STAT Comment: Respiratory Therapy Assessment DAILY Comment: 06/15/24 16:37 Respiratory Therapy Consult ONCE Comment: Reason For Exam: 06/15/24 17:20 RT Screen per Nursing Assess ONCE Comment: Protocol Order Physician Instructions: Greater than 3 points order RT Admission Screen Reason For Exam: Triggered on Admission Diagnosis: hypoxia /bronchitis/asthma exacerbation Diagnosis: hypoxia /bronchitis/asthma exacerbation Pneumonia: No Home O2: No Asthma: Yes CHF: No Home CPAP/BIPAP: No Home Nebs/MDI: Yes Total Points: 9 06/16/24 01:40 Oxygen Nasal Cannula 2 lpm Comment: Diagnosis: hypoxia /bronchitis/asthma exacerbation 06/16/24 09:27 Qualify for Home Oxygen TODAY Comment: Diagnosis: hypoxia /bronchitis/asthma exacerbation Discharge Exam General Appearance: no apparent distress Neurologic Exam: alert, oriented x 3, cooperative Eye Exam: PERRL Ears, Nose, Throat Exam: normal ENT inspection Neck Exam: normal inspection Respiratory Exam: wheezing Cardiovascular Exam: regular rate/rhythm, normal heart sounds Gastrointestinal/Abdomen Exam: soft, normal bowel sounds Male Genitalia Exam: deferred Rectal Exam: deferred Back Exam: normal inspection Extremity Exam: normal inspection Skin Exam: normal color Final Diagnosis/Problem List - Final Discharge Diagnosis/Problem (1) Acute respiratory failure with hypoxia Current Visit: Yes Status: Resolved Code(s): J96.01 - ACUTE RESPIRATORY FAILURE WITH HYPOXIA (2) Acute bronchitis with asthma with acute exacerbation Current Visit: Yes Status: Acute Code(s): J20.9 - ACUTE BRONCHITIS, U NSPECIFIED; J45.901 - UNSPECIFIED ASTHMA WITH (ACUTE) EXACERBATION (3) Leukocytosis Current Visit: Yes Status: Acute Code(s): D72.829 - ELEVATED WHITE BLOOD CELL COUNT, UNSPECIFIED (4) Seizure disorder Current Visit: Yes Status: Chronic Code(s): G40.909 - EPILEPSY, UNSP, NOT INTRACTABLE, WITHOUT STATUS EPILEPTICUS (5) HTN (hypertension) Current Visit: Yes Status: Chronic Code(s): I10 - ESSENTIAL (PRIMARY) HYP ERTENSION (6) HLD (hyperlipidemia) Current Visit: Yes Status: Chronic Code(s): E78.5 - HYPERLIPIDEMIA, U NSPECIFIED (7) IBS (irritable bowel syndrome) Current Visit: Yes Status: Chronic - Discharge Discharge Date: 02/07/25 Disposition: Home, Self-Care Condition: Stable Prescriptions: New cefuroxime axetiL [Cefuroxime] 500 mg PO BID 7 Days #14 tablet Albuterol/Ipratropium 3ml Neb* [DUONEB 0.5-3 MG/3 ml Neb] 3 ml IH Q6HPRN PRN 30 Days #120 amp PRN Reason: Shortness Of Breath/Wheezing predniSONE [Prednisone] 20 mg PO BID 5 Days #10 tablet PANTOPRAZOLE 40 mg Tablet [Protonix 40MG Tablet] 40 mg PO QAM 14 Days #14 tab Continue Albuterol Sulfate [Albuterol Sulfate Hfa] 2 puff PO Q6HPRN PRN PRN Reason: Shortness Of Breath Zonisamide 200 mg PO BID levETIRAcetam [Levetiracetam] 750 mg PO BID Montelukast Sodium 10 mg [Singulair 10 MG] 10 mg PO DINNER Lisinopril 10 mg [Zestril 10 MG] 10 mg PO BID Albuterol Sulfate 1 amp PO Q4-6HPRN Sertraline HCl 50 mg [Zoloft 50 mg Tablet] 50 mg PO DAILY Fluticasone/Umeclidin/Vilanter [Trelegy Ellipta 200-62.5-25] 1 inh PO HS Ascorbic Acid 500 mg [Vitamin C 500 MG] 1,000 mg PO DAILY Follow up with: HARIKA AMAYA NP [Primary Care Provider] - 06/23/24 9:45 am
[2024-06-16 13:29] VITALS: PULSE 97
[2024-06-16] MEDS ORDERED: Singulair 10 MG PO SCH (17:00)
[2024-06-16] MEDS ORDERED: NON-FORMULARY ITEM (Fluticasone/Umeclidin/Vilanter [Trelegy Ellipta 200-62.5-25] 1 EACH Bl PO SCH (22:00)
[2024-06-17 12:31] VITALS: O2SAT 93
== END 2024-06-16 15:03 | disposition home or self-care (01) ==
LOC: ED 11:43 → MED SURG 16:27
PROVIDERS: ADMIT Internal Medicine; ATTEND Internal Medicine
DX: J96.01 Acute respiratory failure with hypoxia (principal); J20.9 Acute bronchitis, unspecified; J45.901 Unspecified asthma with (acute) exacerbation; D72.829 Elevated white blood cell count, unspecified; G40.909 Epilepsy, unspecified, not intractable, without status epilepticus; I10 Essential (primary) hypertension; E78.5 Hyperlipidemia, unspecified; K58.9 Irritable bowel syndrome, unspecified; Z79.899 Other long term (current) drug therapy
CPT/HCPCS: 0241U; 36415; 71045; 80053; 81001; 83605; 83880; 84484; 85025; 85027; 87040; 93005; 94640; 94760; 94762; 96360; 96374; 96375; 99285; Q3014; 93268; J0456; J0696; J1650; J2919; A9270-GY; G0378

== ENCOUNTER 2024-09-09 10:48 | Emergency (ER) | payer MEDICARE ==
--- NOTE | 2024-09-09 10:56 | ERPHSYRPT ---
- History of Present Illness Time Seen by Provider: 09/09/24 10:55 Source: patient, family Exam Limitations: no limitations Physician History: This is a morbidly obese 43-year-old white male who arrives by private vehicle accompanied by his father and is a patient of nurse practitioner Jose Luis with a 3- day history of worsening cough that is productive and chest congestion. He arrives today with additional symptoms of shortness of breath and wheezing. The patient has been producing thick yellow/green sputum. He does not have chest pain. Patient has a history of asthma/COPD. He does not smoke tobacco. He has no clotting or bleeding disorders. He does have a history of seizure disorder, gastroesophageal reflux disease and hypertension. Timing/Duration: day(s) (3), worse (Symptoms worsening over the last few days) Severity of Dyspnea-Max: moderate Severity of Dyspnea-Current: mild (Moderate) Possible Cause: occasional episodes Modifying Factors: Improves With: albuterol nebulizer (Proved), coughing Associated Symptoms: cough, wheezing, No chest pain/discomfort, No ankle swelling, No heaviness Allergies/Adverse Reactions: No Known Drug Allergies Allergy (Verified 09/09/24 11:18) Home Medications: Albuterol Sulfate 1 amp PO Q4-6HPRN 06/15/24 [History] Albuterol Sulfate [Albuterol Sulfate Hfa] 2 puff PO Q6HPRN PRN 06/15/24 [History] Ascorbic Acid 500 mg [Vitamin C 500 MG] 1,000 mg PO DAILY 06/15/24 [History] Fluticasone/Umeclidin/Vilanter [Trelegy Ellipta 200-62.5-25] 1 inh PO HS 06/15/24 [History] Lisinopril 10 mg [Zestril 10 MG] 10 mg PO BID 06/15/24 [History] Montelukast Sodium 10 mg [Singulair 10 MG] 10 mg PO DINNER 06/15/24 [History] Sertraline HCl 50 mg [Zoloft 50 mg Tablet] 50 mg PO DAILY 06/15/24 [History] Zonisamide 200 mg PO BID 06/15/24 [History] levETIRAcetam [Levetiracetam] 750 mg PO BID 06/15/24 [History] Hx Influenza Vaccination/Date Given: Yes Hx Pneumococcal Vaccination/Date Given: Yes Travel Risk - International Travel Have you traveled outside of the country in past 3 weeks: No - Emerging Infectious Disease Are you exhibiting symptoms associated with any current EIDs: Yes Symptoms: Cough: New Onset, Shortness of Breath - Review of Systems Constitutional: No Symptoms Eyes: No Symptoms Ears, Nose, & Throat: No Symptoms Respiratory: Cough, Dyspnea (With coughing), Wheezing Cardiac: No Symptoms, No Chest Pain Abdominal/Gastrointestinal: No Symptoms Genitourinary Symptoms: No Symptoms Musculoskeletal: No Symptoms Skin: No Symptoms Neurological: No Symptoms Psychological: No Symptoms Endocrine: No Symptoms Hematologic/Lymphatic: No Symptoms Immunological/Allergic: No Symptoms All Other Systems: Reviewed and Negative - Past Medical History Pertinent Past Medical History: Yes Neurological History: Seizures Cardiac History: High Cholesterol, Hypertension Respiratory History: Asthma GI Medical History: Irritable Bowel Psycho-Social History: Depression - Past Surgical History Past Surgical History: Yes Musculoskeletal: Orthopedic Surgery Other Surgical History: thyroid surgery, sobeida ankle surgery to straighten feet Significant Family History: heart disease, diabetes, hypertension, other (asthma/ HLD) - Social History Smoking Status: Never smoker Exposure to second hand smoke: Yes Drug Use: none - Social Determinants of Health Will the patient participate in the screening: Yes Do you worry about a steady place to live?: No In the past 12 months,have you had to go without utilities?: No Transportation Issues: No Has anyone in your support network made you feel unsafe?: No Have you or anyone in your house had to go w/o enough food: No - Nursing Vital Signs Nursing Vital Signs: Initial Vital Signs Temperature 98.4 F 09/09/24 11:19 Pulse Rate 86 09/09/24 11:19 Respiratory Rate 30 H 09/09/24 11:19 Blood Pressure 122/76 09/09/24 11:19 O2 Sat by Pulse Oximetry 95 09/09/24 11:19 Pain Scale Pain Intensity 0 - Physical Exam General Appearance: no apparent distress, alert, anxiety, obese Eye Exam: PERRL/EOMI, eyes nml inspection Ears, Nose, Throat Exam: hearing grossly normal, normal ENT inspection, normal pharynx Neck Exam: normal inspection, non-tender, supple, full range of motion Respiratory Exam: airway intact, wheezing (Bilateral expiratory wheezing), No chest tenderness, No respiratory distress Cardiovascular/Chest Exam: normal heart sounds, regular rate/rhythm Abdominal/Gastrointestinal Exam: soft, normal bowel sounds, No tenderness Rectal Exam: not done Extremity Exam: non-tender, normal range of motion, normal inspection Neurologic Exam: alert, oriented x 3, cooperative, supply chain planner II-XII nml as tested, nml cerebellar function, nml station & gait, sensation nml Skin Exam: normal color, warm, dry Lymphatic Exam: No adenopathy SpO2 Interpretation: normal O2 Delivery: Room Air - Course Nursing assessment & vital signs reviewed: Yes EKG Interpreted by Me: RATE (83), Sinus Rhythm, LAFB, NORMAL INTERVALS, NORMAL QRS, Other (No acute ischemia. QTc is 431) Ordered Tests: Active Orders 24 hr Category Date Time Status Supervisor [employer] STAT Care 09/09/24 11:28 Active EKG-ER Only STAT Care 09/09/24 11:27 Active IV Insertion STAT Care 09/09/24 11:27 Active Pulse Oximetry (ED) STAT Care 09/09/24 11:27 Active CHEST 1 VIEW (PORTABLE) Stat Exams 09/09/24 11:28 Taken BLOOD CULTURE Stat Lab 09/09/24 12:09 Received CBC W DIFF Stat Lab 09/09/24 11:50 Completed CMP Stat Lab 09/09/24 11:50 Completed D-DIMER QUANTITATIVE Stat Lab 09/09/24 11:50 Completed MAGNESIUM Stat Lab 09/09/24 11:50 Completed NT PRO BNPII Stat Lab 09/09/24 11:50 Completed TROPONIN Q4H Lab 09/09/24 11:50 Completed TROPONIN Q4H Lab 09/09/24 15:30 Ordered TROPONIN Q4H Lab 09/09/24 19:30 Ordered Medication Summary Generic Name Dose Route Start Last Admin Trade Name Freq PRN Reason Stop Dose Admin Ceftriaxone Sodium 1 gm in 100 mls @ 200 mls/hr 09/09/24 12:44 09/09/24 12:52 Rocephin 1 Gm / 100 Ml Nacl IV 09/09/24 13:13 200 ml/hr STAT ONE 200 mls/hr Administration Discontinued Medications Generic Name Dose Route Start Last Admin Trade Name Freq PRN Reason Stop Dose Admin Albuterol/Ipratropium Confirm 09/09/24 11:19 Ipratropium/Albuterol Sulfate 3 Ml Ampul.Neb Administered 09/09/24 11:20 Dose 3 ml IH .STK-MED ONE Albuterol/Ipratropium 3 ml 09/09/24 11:21 09/09/24 11:22 Ipratropium/Albuterol Sulfate 3 Ml Ampul.Neb IH 09/09/24 11:22 3 ml STAT ONE Administration Methylprednisolone Sodium 0 mg 09/09/24 11:27 09/09/24 11:36 Succinate 125 mg/ Sterile IV 09/09/24 11:28 125 mg Water 2 ml STAT ONE Administration Ceftriaxone Sodium Confirm 09/09/24 12:49 Rocephin 1 Gm / 100 Ml Nacl Administered 09/09/24 12:50 Dose 1 gm in 100 mls @ ud IV .STK-MED ONE Methylprednisolone Sodium Succinate Confirm 09/09/24 11:36 Methylprednis Sod Succ 125 Mg/2 Ml Vial Administered 09/09/24 11:37 Dose 125 mg .ROUTE .STK-MED ONE Sterile Water Confirm 09/09/24 11:36 Water For Injection,Sterile 10 Ml Vial Administered 09/09/24 11:37 Dose 10 ml IJ .STK-MED ONE Lab/Rad Data: Laboratory Result Diagrams 09/09/24 11:50 09/09/24 11:50 Laboratory Results 09/09/24 09/09/24 09/09/24 Range/Units 12:14 11:50 11:50 WBC (4.23-9.07) x10^3/uL RBC (4.63-6.08) x10^6/uL Hgb (13.7-17.5) g/dL Hct (40.1-51.0) % MCV (79.0-92.2) fL MCH (25.7-32.2) pg MCHC (32.3-36.5) g/dL RDW (11.6-14.4) % Plt Count (163-337) x10^3/uL MPV (9.4-12.4) fL Gran % (34.0-67.9) % Immature Gran % (Auto) (0.001-0.429) % Nucleat RBC Rel Count (0.00-0.2) % Eos # (Auto) (0.04-0.54) x10^3/uL Immature Gran # (Auto) (0.001-0.031) x10^3u/L Absolute Lymphs (auto) (1.32-3.57) x10^3/uL Absolute Monos (auto) (0.30-0.82) x10^3/uL Absolute Nucleated RBC (0.00-0.012) x10^3u/L Lymphocytes % (21.8-53.1) % Monocytes % (5.3-12.2) % Eosinophils % (0.8-7.0) % Basophils % (0.2-1.2) % Absolute Granulocytes (1.78-5.38) x10^3/uL Basophils # (0.01-0.08) x10^3/uL D-Dimer (0.0-0.50) mg/L Sodium (135-145) mmol/L Potassium (3.5-5.1) mmol/L Chloride (98-107) mmol/L Carbon Dioxide (22-30) mmol/L Anion Gap (5-15) MEQ/L BUN (9-20) mg/dL Creatinine (0.66-1.25) mg/dL Estimated GFR ML/MIN Glucose (74-106) mg/dL Calcium (8.4-10.2) mg/dL Magnesium (1.6-2.3) mg/dL Total Bilirubin (0.2-1.3) mg/dL AST (17-59) U/L ALT (0-50) U/L Alkaline Phosphatase (38-126) U/L Troponin I < 0.012 (0.000-0.033) ng/mL NT-Pro-B Natriuret Pep < 20.0 (<300) pg/mL Serum Total Protein (6.3-8.2) g/dL Albumin (3.5-5.0) g/dL Influenza Type A Ag NEGATIVE (NEGATIVE) Influenza Type B Ag NEGATIVE (NEGATIVE) RSV (PCR) NEGATIVE (NEGATIVE) SARS-CoV-2 (PCR) NEGATIVE (NEGATIVE) 09/09/24 09/09/24 09/09/24 Range/Units 11:50 11:50 11:50 WBC 10.5 H (4.23-9.07) x10^3/uL RBC 5.23 (4.63-6.08) x10^6/uL Hgb 15.5 (13.7-17.5) g/dL Hct 47.4 (40.1-51.0) % MCV 90.6 (79.0-92.2) fL MCH 29.6 (25.7-32.2) pg MCHC 32.7 (32.3-36.5) g/dL RDW 14.2 (11.6-14.4) % Plt Count 271 (163-337) x10^3/uL MPV 10.2 (9.4-12.4) fL Gran % 59.1 (34.0-67.9) % Immature Gran % (Auto) 2.0 H (0.001-0.429) % Nucleat RBC Rel Count 0.0 (0.00-0.2) % Eos # (Auto) 0.81 H (0.04-0.54) x10^3/uL Immature Gran # (Auto) 0.21 H (0.001-0.031) x10^3u/L Absolute Lymphs (auto) 2.07 (1.32-3.57) x10^3/uL Absolute Monos (auto) 0.90 H (0.30-0.82) x10^3/uL Absolute Nucleated RBC 0.00 (0.00-0.012) x10^3u/L Lymphocytes % 19.8 L (21.8-53.1) % Monocytes % 8.6 (5.3-12.2) % Eosinophils % 7.7 H (0.8-7.0) % Basophils % 2.8 H (0.2-1.2) % Absolute Granulocytes 6.19 H (1.78-5.38) x10^3/uL Basophils # 0.29 H (0.01-0.08) x10^3/uL D-Dimer < 0.19 (0.0-0.50) mg/L Sodium 144 (135-145) mmol/L Potassium 4.0 (3.5-5.1) mmol/L Chloride 109 H (98-107) mmol/L Carbon Dioxide 19 L (22-30) mmol/L Anion Gap 20.3 H (5-15) MEQ/L BUN 13 (9-20) mg/dL Creatinine 1.00 (0.66-1.25) mg/dL Estimated GFR 96.4 ML/MIN Glucose 91 (74-106) mg/dL Calcium 9.5 (8.4-10.2) mg/dL Magnesium 2.0 (1.6-2.3) mg/dL Total Bilirubin 0.50 (0.2-1.3) mg/dL AST 29 (17-59) U/L ALT 26 (0-50) U/L Alkaline Phosphatase 59 (38-126) U/L Troponin I (0.000-0.033) ng/mL NT-Pro-B Natriuret Pep (<300) pg/mL Serum Total Protein 8.2 (6.3-8.2) g/dL Albumin 4.9 (3.5-5.0) g/dL Influenza Type A Ag (NEGATIVE) Influenza Type B Ag (NEGATIVE) RSV (PCR) (NEGATIVE) SARS-CoV-2 (PCR) (NEGATIVE) - Progress Progress: improved, re-examined Air Movement: fair Progress Note: 09/09/24 11:53 My medical decision making and the assignment of moderate complexity to this patient's medical issue today is based on review of the patient's past medical history, review the patient's medication list, reviewed patient drug allergy list, history present illness and physical findings on examination. The workup in this patient includes placement of intravenous line, CBC, CMP, BNP, twelve- lead EKG, chest x-ray, viral swabs, and infusion of Solu-Medrol intravenously. We also consulted respiratory therapy to provide this patient with nebulizer treatments and assessment. Differential diagnosis includes but is not limited to COPD exacerbation, asthmatic exacerbation, congestive heart failure, arrhythmia, viral illness, upper respiratory infection, pneumonia 09/09/24 12:51 I reexamined this patient. The patient's symptoms have improved after the breathing treatment and infusion of steroids. He has no chest pain. The room air oxygen saturation level is 94% at this time. I interpret the patient's laboratory data results. We are awaiting the results of the viral swabs. I interpreted the patient's preliminary chest x-ray report. The patient and family are aware this is only a preliminary report and they will have another read tomorrow and if it is different than my interpretation, they will receive a phone call. It appears as though the patient has a right side/lower lobe infiltrate. 09/09/24 12:55 The patient's viral swabs are negative. Blood Culture(s) Obtained: Yes Antibiotics given: Yes Counseled pt/family regarding: lab results, diagnosis, need for follow-up, rad results Medical Desision Making - Independent Historian Additional History obtained from: Father - Diagnostic Testing Radiological Interpretation: Interpreted by me, Teleradiologist Report - Risk of complications The pt has a mod risk of morbidity or mortality based on: Need for prescription drug management - Departure Departure Disposition: Home Clinical Impression: Right pulmonary infiltrate on CXR Condition: Stable Critical Care Time: No Referrals: HARIKA SCHUMACHER NP [Primary Care Provider, [facility]] - Follow up/PCP as directed Additional Instructions: Drink plenty of clear liquids before advancing your diet. Continue your nebulizer treatments at home every 4 hours while awake. Take your steroids, antibiotics and other medication as prescribed. Call your prescribing provider on 09/11/2024, to make arrangements for follow-up appointment for further evaluation and management and to be seen in the next 3 to 5 days. Prescriptions: Cefdinir 300 mg PO BID #14 cap Prednisone 10 mg [Deltasone 10 mg] 10 mg PO TID #12 tablet
[2024-09-09] MEDS ORDERED: DUONEB 0.5-3 MG/3 ml Neb IH ONE (11:19)
[2024-09-09] MEDS: DUONEB 0.5-3 MG/3 ml Neb IH ONE (11:22)
[2024-09-09 11:28] VITALS: TEMP 98.4
[2024-09-09] MEDS ORDERED: Sterile H2O 10 ml IJ ONE (11:36)
[2024-09-09] MEDS: solu-MEDROL 125 MG, Sterile H2O 10 ml 2 ML IV ONE (11:36)
[2024-09-09] MEDS ORDERED: solu-MEDROL ONE (11:36)
[2024-09-09 12:14] LABS: Absolute Neutrophil Ct (ANC) 6.19 x10^3/uL (1.78-5.38); BASOPHIL % 2.8 % (0.2-1.2); Basophil (Absolute #) 0.29 x10^3/uL (0.01-0.08); Eosinophil % 7.7 % (0.8-7.0); Eosinophil (Absolute #) 0.81 x10^3/uL (0.04-0.54); Hematocrit 47.4 % (40.1-51.0); Hemoglobin 15.5 g/dL (13.7-17.5); IMMATURE GRAN # 0.21 x10^3u/L (0.001-0.031); Lymphocyte (Absolute #) 2.07 x10^3/uL (1.32-3.57); Lymphocytes % 19.8 % (21.8-53.1); Mean Cell Volume 90.6 fL (79.0-92.2); Mean Corpuscular Hemoglobin 29.6 pg (25.7-32.2); Mean Corpuscular Hgb Concent. 32.7 g/dL (32.3-36.5); Mean Platelet Volume 10.2 fL (9.4-12.4); Monocytes % 8.6 % (5.3-12.2); Neutrophil % 59.1 % (34.0-67.9); Platelet Count 271 x10^3/uL (163-337); Red Blood Count 5.23 x10^6/uL (4.63-6.08); Red Cell Distribution Width 14.2 % (11.6-14.4); White Blood Count 10.5 x10^3/uL (4.23-9.07)
[2024-09-09 12:28] LABS: ALBUMIN 4.9 g/dL (3.5-5.0); ANION GAP 20.3 MEQ/L (5-15); BILIRUBIN,TOTAL 0.5 mg/dL (0.2-1.3); Calcium 9.5 mg/dL (8.4-10.2); EST GLOMERULAR FILTRATION RATE 96.4 ML/MIN; Total Protein 8.2 g/dL (6.3-8.2)
[2024-09-09] MEDS ORDERED: ROCEPHIN 1 GM / 100 ML NaCl 1 GM/100 ML IVPB IV ONE (12:49)
[2024-09-09 12:51] LABS: INFLUENZA A NEGATIVE (NEGATIVE); INFLUENZA B NEGATIVE (NEGATIVE); RESPIRATORY SYNCTIAL VIRUS NEGATIVE (NEGATIVE); SARS-CoV-2 Xpert Express NEGATIVE (NEGATIVE)
[2024-09-09] MEDS: ROCEPHIN 1 GM / 100 ML NaCl 1 GM/100 ML IVPB IV ONE (12:52)
[2024-09-09 13:16] VITALS: O2SAT 92
[2024-09-09 14:02] VITALS: PULSE 87; RESP 24
[2024-09-09 14:07] VITALS: BP 130/76
--- NOTE | 2024-09-09 20:37 | XRAY ---
Indication: Short of breath. Wheezing. Comparison: June 15, 2024 Portable chest demonstrates new right base infiltrate/atelectasis. Remaining heart and left lung unremarkable. Bony thorax intact.
== END 2024-09-09 14:05 | disposition home or self-care (01) ==
LOC: ED 10:48
DX: R91.8 Other nonspecific abnormal finding of lung field (principal); R05.1 Acute cough; R06.02 Shortness of breath; Z79.52 Long term (current) use of systemic steroids; Z79.899 Other long term (current) drug therapy
CPT/HCPCS: 0241U; 36415; 71045; 80053; 83735; 83880; 84484; 85025; 85379; 87040; 93005; 93041; 94640; 94760; 96365; 96375; 99285; 96374; 99284; J0696; J2919; A9270-GY

== ENCOUNTER 2025-03-05 11:48 | Emergency (ER) | payer MEDICARE ==
[2025-03-05] MEDS ORDERED: DUONEB 0.5-3 MG/3 ml Neb IH ONE (11:54)
[2025-03-05] MEDS: DUONEB 0.5-3 MG/3 ml Neb IH ONE (11:58)
[2025-03-05] MEDS ORDERED: PROVENTIL 2.5 MG/3 ML NEB IH ONE (12:05)
[2025-03-05] MEDS: PROVENTIL 2.5 MG/3 ML NEB IH ONE (12:07)
[2025-03-05] MEDS ORDERED: Sterile H2O 10 ml IJ ONE (12:14)
[2025-03-05] MEDS: solu-MEDROL 125 MG, Sterile H2O 10 ml 2 ML IV ONE (12:14)
[2025-03-05 12:15] LABS: BASOPHIL % 2.1 % (0.2-1.2); Basophil (Absolute #) 0.32 x10^3/uL (0.01-0.08); Eosinophil (Absolute #) 1.00 x10^3/uL (0.04-0.54); Hematocrit 49.6 % (40.1-51.0); Hemoglobin 15.6 g/dL (13.7-17.5); IMMATURE GRAN # 0.27 x10^3u/L (0.001-0.031); IMMATURE GRAN % 1.8 % (0.001-0.429); Lymphocyte (Absolute #) 2.08 x10^3/uL (1.32-3.57); Mean Corpuscular Hemoglobin 29.3 pg (25.7-32.2); Mean Corpuscular Hgb Concent. 31.5 g/dL (32.3-36.5); Monocyte (Absolute #) 1.21 x10^3/uL (0.30-0.82); NUCLEATED RBC # 0.00 x10^3u/L (0.00-0.012); NUCLEATED RBC % 0.0 % (0.00-0.2); Platelet Count 309 x10^3/uL (163-337); Red Blood Count 5.33 x10^6/uL (4.63-6.08); White Blood Count 14.9 x10^3/uL (4.23-9.07)
[2025-03-05 12:21] LABS: Calcium 9.2 mg/dL (8.4-10.2); Carbon Dioxide 17.0 mmol/L (22-30); Creatinine 1 0.93 mg/dL (0.66-1.25); EST GLOMERULAR FILTRATION RATE 104.5 ML/MIN; Glucose 99.0 mg/dL (74-106); Potassium 3.9 mmol/L (3.5-5.1); SGOT/AST 25.0 U/L (17-59); SGPT/ALT 24.0 U/L (0-50); Total Protein 8.3 g/dL (6.3-8.2)
[2025-03-05 12:41] VITALS: TEMP 97.8
--- NOTE | 2025-03-05 12:42 | XRAY ---
Indication: Short of breath. Comparison: September 09, 2024 Portable chest is now clear. Heart not enlarged. Bony thorax intact. No new/acute findings.
[2025-03-05 12:50] VITALS: BP 141/78; O2SAT 95
[2025-03-05 12:59] LABS: INFLUENZA A NEGATIVE (NEGATIVE); INFLUENZA B NEGATIVE (NEGATIVE); RESPIRATORY SYNCTIAL VIRUS NEGATIVE (NEGATIVE); SARS-CoV-2 Xpert Express NEGATIVE (NEGATIVE)
[2025-03-05 13:21] VITALS: PULSE 99; RESP 22
--- NOTE | 2025-03-05 13:30 | ERPHSYRPT ---
- History of Present Illness Time Seen by Provider: 03/05/25 11:50 Source: patient, family Exam Limitations: no limitations Patient Subjective Stated Complaint: Pt. states "Zbigniew having trouble breathing, coughing up yellow stuff.". Sister states, "He has asthma and he caught a cold and it has made his asthma flare up. This started yesterday and has just gotten worse. I gave him a duoneb at 1030am." Triage Nursing Assessment: Pt. ambulated to room, very sob, unable to speak complete sentences. Using accessory muscles to breath, resp. 40 per minute. Audible wheezes noted with occassional cough. Skin pale, warm and dry, A&Ox4, no edema. Physician History: Patient has history of asthma comes to the emergency room due to cough shortness of breath and wheezing patient saturation at home has been between 90 and 95% patient comes to the ER with sister who takes care of him did some breathing treatments at home which helped but she was concerned because he was still wheezing. Patient denies any chest pain denies any fever chills Timing/Duration: yesterday Activities at Onset: none Severity of Dyspnea-Max: mild Severity of Dyspnea-Current: mild Possible Cause: frequent episodes Modifying Factors: Improves With: albuterol nebulizer Associated Symptoms: cough Allergies/Adverse Reactions: No Known Drug Allergies Allergy (Verified 09/09/24 11:18) Home Medications: Albuterol Sulfate 1 amp PO Q4-6HPRN 06/15/24 [History] Albuterol Sulfate [Albuterol Sulfate Hfa] 2 puff PO Q6HPRN PRN 06/15/24 [History] Ascorbic Acid 500 mg [Vitamin C 500 MG] 1,000 mg PO DAILY 06/15/24 [History] Fluticasone/Umeclidin/Vilanter [Trelegy Ellipta 200-62.5-25] 1 inh PO HS 06/15/24 [History] Lisinopril 10 mg [Zestril 10 MG] 10 mg PO BID 06/15/24 [History] Montelukast Sodium 10 mg [Singulair 10 MG] 10 mg PO DINNER 06/15/24 [History] Sertraline HCl 50 mg [Zoloft 50 mg Tablet] 50 mg PO DAILY 06/15/24 [History] Zonisamide 200 mg PO BID 06/15/24 [History] levETIRAcetam [Levetiracetam] 750 mg PO BID 06/15/24 [History] Hx Influenza Vaccination/Date Given: Yes Hx Pneumococcal Vaccination/Date Given: Yes Travel Risk - International Travel Have you traveled outside of the country in past 3 weeks: No - Emerging Infectious Disease Are you exhibiting symptoms associated with any current EIDs: No Symptoms: Cough: New Onset, Shortness of Breath - Review of Systems Constitutional: No Fever, No Chills Ears, Nose, & Throat: No Symptoms Respiratory: Wheezing Cardiac: No Chest Pain, No Edema, No Syncope Neurological: No Dizziness, No Focal Weakness, No Sensory Changes Psychological: No Symptoms - Past Medical History Pertinent Past Medical History: Yes Neurological History: Seizures ENT History: No Pertinent History Cardiac History: High Cholesterol, Hypertension Respiratory History: Asthma Endocrine Medical History: No Pertinent History Musculoskeletal History: No Pertinent History GI Medical History: Irritable Bowel History: No Pertinent History Psycho-Social History: Depression Male Reproductive Disorders: No Pertinent History - Past Surgical History Past Surgical History: Yes Neuro Surgical History: No Pertinent History Cardiac: No Pertinent History Respiratory: No Pertinent History Gastrointestinal: No Pertinent History Genitourinary: No Pertinent History Musculoskeletal: Orthopedic Surgery Male Surgical History: No Pertinent History Other Surgical History: thyroid surgery, sobeida ankle surgery to straighten feet Significant Family History: heart disease, diabetes, hypertension, other (asthma/ HLD) - Social History Smoking Status: Never smoker Exposure to second hand smoke: No Drug Use: none - Social Determinants of Health Will the patient participate in the screening: Declined to provide - Nursing Vital Signs Nursing Vital Signs: Initial Vital Signs Pulse Rate 107 H 03/05/25 11:46 Respiratory Rate 36 H 03/05/25 11:46 Blood Pressure 121/74 03/05/25 11:46 O2 Sat by Pulse Oximetry 95 03/05/25 11:46 Pain Scale Pain Intensity 0 - Physical Exam General Appearance: no apparent distress Eye Exam: PERRL/EOMI Ears, Nose, Throat Exam: normal pharynx Respiratory Exam: wheezing Cardiovascular/Chest Exam: normal heart sounds Abdominal/Gastrointestinal Exam: soft Neurologic Exam: alert Skin Exam: normal color SpO2 Interpretation: normal SpO2: 95 O2 Delivery: Room Air Ordered Tests: Active Orders 24 hr Category Date Time Status EKG-ER Only STAT Care 03/05/25 12:50 Active CHEST 1 VIEW (PORTABLE) Stat Exams 03/05/25 12:36 Completed CBC W DIFF Stat Lab 03/05/25 12:00 Completed CMP Stat Lab 03/05/25 12:00 Completed Medication Summary Discontinued Medications Generic Name Dose Route Start Last Admin Trade Name Yifan PRN Reason Stop Dose Admin Albuterol Sulfate Confirm 03/05/25 12:05 Albuterol Sulfate 2.5 Mg/3 Ml Neb Administered 03/05/25 12:06 Dose 2.5 mg IH .STK-MED ONE Albuterol Sulfate 2.5 mg 03/05/25 12:06 03/05/25 12:07 Albuterol Sulfate 2.5 Mg/3 Ml Neb IH 03/05/25 12:07 2.5 mg STAT ONE Administration Albuterol/Ipratropium Confirm 03/05/25 11:54 Ipratropium/Albuterol Sulfate 3 Ml Ampul.Neb Administered 03/05/25 11:55 Dose 3 ml IH .STK-MED ONE Albuterol/Ipratropium 3 ml 03/05/25 11:57 03/05/25 11:58 Ipratropium/Albuterol Sulfate 3 Ml Ampul.Neb IH 03/05/25 11:58 3 ml STAT ONE Administration Methylprednisolone Sodium 0 mg 03/05/25 12:11 03/05/25 12:14 Succinate 125 mg/ Sterile IV 03/05/25 12:12 125 mg Water 2 ml STAT ONE Administration Methylprednisolone Sodium Succinate Confirm 03/05/25 12:14 Methylprednis Sod Succ 125 Mg/2 Ml Vial Administered 03/05/25 12:15 Dose 125 mg .ROUTE .STK-MED ONE Sterile Water Confirm 03/05/25 12:14 Water For Injection,Sterile 10 Ml Vial Administered 03/05/25 12:15 Dose 10 ml IJ .STK-MED ONE Lab/Rad Data: Laboratory Result Diagrams 03/05/25 12:00 03/05/25 12:00 Laboratory Results 03/05/25 03/05/25 03/05/25 Range/Units 12:19 12:00 12:00 WBC 14.9 H (4.23-9.07) x10^3/uL RBC 5.33 (4.63-6.08) x10^6/uL Hgb 15.6 (13.7-17.5) g/dL Hct 49.6 (40.1-51.0) % MCV 93.1 H (79.0-92.2) fL MCH 29.3 (25.7-32.2) pg MCHC 31.5 L (32.3-36.5) g/dL RDW 14.6 H (11.6-14.4) % Plt Count 309 (163-337) x10^3/uL MPV 9.9 (9.4-12.4) fL Gran % 67.3 (34.0-67.9) % Immature Gran % (Auto) 1.8 H (0.001-0.429) % Nucleat RBC Rel Count 0.0 (0.00-0.2) % Eos # (Auto) 1.00 H (0.04-0.54) x10^3/uL Immature Gran # (Auto) 0.27 H (0.001-0.031) x10^3u/L Absolute Lymphs (auto) 2.08 (1.32-3.57) x10^3/uL Absolute Monos (auto) 1.21 H (0.30-0.82) x10^3/uL Absolute Nucleated RBC 0.00 (0.00-0.012) x10^3u/L Lymphocytes % 14.0 L (21.8-53.1) % Monocytes % 8.1 (5.3-12.2) % Eosinophils % 6.7 (0.8-7.0) % Basophils % 2.1 H (0.2-1.2) % Absolute Granulocytes 10.03 H (1.78-5.38) x10^3/uL Basophils # 0.32 H (0.01-0.08) x10^3/uL Sodium 144 (135-145) mmol/L Potassium 3.9 (3.5-5.1) mmol/L Chloride 113 H (98-107) mmol/L Carbon Dioxide 17 L (22-30) mmol/L Anion Gap 17.3 H (5-15) MEQ/L BUN 13 (9-20) mg/dL Creatinine 0.93 (0.66-1.25) mg/dL Estimated GFR 104.5 ML/MIN Glucose 99 (74-106) mg/dL Calcium 9.2 (8.4-10.2) mg/dL Total Bilirubin 0.40 (0.2-1.3) mg/dL AST 25 (17-59) U/L ALT 24 (0-50) U/L Alkaline Phosphatase 63 (38-126) U/L Serum Total Protein 8.3 H (6.3-8.2) g/dL Albumin 4.8 (3.5-5.0) g/dL Influenza Type A Ag NEGATIVE (NEGATIVE) Influenza Type B Ag NEGATIVE (NEGATIVE) RSV (PCR) NEGATIVE (NEGATIVE) SARS-CoV-2 (PCR) NEGATIVE (NEGATIVE) - Progress Progress: improved Air Movement: good Progress Note: 03/05/25 13:28 Patient comes to the emergency room due to asthma exacerbation patient did a nebulizer treatment for come to the ER patient was given 2 more nebulizer treatments here in the emergency room which helped significantly patient is breathing a lot better. There is some slight wheeze bilaterally but now the patient is able to breathe and compensate. Patient was also given Solu-Medrol here patient will be sent home on a Medrol Dosepak the patient is normally on a low-dose steroid 5 mg every night the reason why the patient's white count is elevated x-ray was negative for pneumonia. Patient's swabs are also negative for any COVID flu patient will be discharged on a Medrol Dosepak advised follow- up with primary care and/or certified scrub tech. - Departure Departure Disposition: Home Clinical Impression: Acute bronchitis with asthma with acute exacerbation Condition: Good Critical Care Time: No Referrals: HARIKA SCHUMACHER NP [Primary Care Provider, [facility]] - Follow up/PCP as directed Instructions: Asthma, Adult (DC) Prescriptions: Prednisone 10 mg [Deltasone 10 mg] 10 mg PO TID #12 tablet
== END 2025-03-05 13:43 | disposition home or self-care (01) ==
LOC: ED 11:48
DX: J20.9 Acute bronchitis, unspecified (principal); J45.901 Unspecified asthma with (acute) exacerbation; R05.1 Acute cough; R06.02 Shortness of breath; I10 Essential (primary) hypertension; Z79.899 Other long term (current) drug therapy